=== PATIENT | female | born 1950 | race African-American/Black ===

== ENCOUNTER → 2016-06-06 | Outpatient (CLI) | payer MEDICARE, MEDICAID | LOC: OD 08:34 | PROVIDERS: ATTEND Physician Assistant | DX: R05 Cough (principal) | CPT/HCPCS: 71020 ==

== ENCOUNTER → 2016-09-12 | Outpatient (CLI) | payer MEDICARE, MEDICAID ==
[2016-09-12 13:27] LABS: ALANINE AMINOTRANSFERASE 24 U/L (9-52); ALBUMIN 3.8 g/dL (3.5-5.0); ALKALINE PHOSPHATASE 110 U/L (38-126); ASPARTATE AMINO TRANSFERASE 18 U/L (14-36); BILIRUBIN,DIRECT 0.3 mg/dL (0.0-0.4); BILIRUBIN,TOTAL 0.5 mg/dL (0.2-1.3); CHOLESTEROL 191.92 mg/dL (0-200); Direct HDL 65 mg/dL (>40); TOTAL PROTEIN 6.9 g/dL (6.3-8.2); TRIGLYCERIDES 97 mg/dL (<150)
[2016-09-12 13:38] LABS: DIRECT LDL 95 mg/dL (<100)
== END ==
LOC: OD 07:39
PROVIDERS: ATTEND Specialist
DX: I42.8 Other cardiomyopathies (principal); I50.1 Left ventricular failure, unspecified; I10 Essential (primary) hypertension; E78.5 Hyperlipidemia, unspecified; E11.9 Type 2 diabetes mellitus without complications; R06.02 Shortness of breath; E66.9 Obesity, unspecified; Z79.899 Other long term (current) drug therapy; F17.210 Nicotine dependence, cigarettes, uncomplicated; Z95.810 Presence of automatic (implantable) cardiac defibrillator
CPT/HCPCS: 36415; 80061; 80076; 83036

== ENCOUNTER → 2017-01-08 | Outpatient (CLI) | payer MEDICARE, MEDICAID ==
--- NOTE | 2017-01-08 13:02 | WOMENS IMAGING REPORT ---
EXAM DESCRIPTION: 3D SCREENING MAMMO BILAT COMPLETED DATE/TIME: 01/08/2017 11:38 am REASON FOR STUDY: ENCOUNTER FOR SCREENING MAMMO FOR MALIGNANT NEOPLASM Z12.31 COMPARISON: 12/20/2015 and 12/27/2012. TECHNIQUE: Standard craniocaudal and mediolateral oblique views of each breast recorded using digita l acquisition and breast tomosynthesis. LIMITATIONS: None. FINDINGS: Findings present which are benign by mammographic criteria. No suspicious masses, calcifi cations or architectural distortion. Pertinent benign findings: Stable calcifications. Read with the assistance of CAD. .[facility] - R2 Cenova Version 1.3 .[facility] Imaging - R2 Cenova Version 1.3 .[facility] - R2 Cenova Version 2.4 .[facility] [place] R2 Cenova Version 2.4 .[facility] - R2 Hide And Skin Classer Version 9.2 Benign mammographic findings may include one or more of the following: Smooth masses, popcorn/rim/co arse calcifications, asymmetries, post-procedure changes, and lesions with long-standing stability. IMPRESSION: BENIGN MAMMOGRAPHIC FINDINGS. BIRADS 2 BREAST DENSITY: b. There are scattered areas of fibroglandular density. BIRAD: 2 BENIGN FINDING(S) RECOMMENDATION: RECOMMENDATION: ROUTINE SCREENING COMMENT: The patient has been notified of the results by letter per SA requirements. Additional no tification policies are in place for contacting patient with suspicious or incomplete findings. Quality ID #[id number]: The [employer] recommends an annual screening mammogram for women aged 40 years or over. This facility utilizes a reminder system to ensure that all patients receive reminder letters, and/or direct phone calls for appointments. This includes reminders for routine scr eening mammograms, diagnostic mammograms, or other Breast Imaging Interventions when appropriate. Th is patient will be placed in the appropriate reminder system. The [employer] (ACR) has developed recommendations for screening MRI of the breast s in certain patient populations, to be used in conjunction with mammography. Breast MRI surveillanc e may be appropriate for women with more than 20% lifetime risk of developing breast cancer as deter mined by genetic testing, significant family history of the disease, or history of mantle radiation f or Hodgkins Disease. ACR Practice Guidelines 2008. DBT Technology DBT is a type of tomographic mammography. With conventional mammography, overlapping breast tissue ma y make lesions difficult to detect, even with good compression. DBT uses an x-ray tube that rotates a round the breast, taking images at different angles. These images are then combined to create thin sl ices of the breast that the radiologist can view as a 3D reconstruction. The Hologic unit can perform full-field digital mammograms (2D imaging); or DBT (3D imaging); or both, in a combination mode that quickly performs both the mammogram and the tomosynthesis scan while the breast is still compressed. PQRS 6045F: Fluoroscopic imaging is not utilized for breast tomosynthesis. TECHNICAL DOCUMENTATION: FINDING NUMBER: (1) ASSESSMENT: (1) JOB ID: [id number] [employer]- All Rights Reserved
== END ==
LOC: WI 11:11
PROVIDERS: ATTEND Family Medicine
DX: Z12.31 Encounter for screening mammogram for malignant neoplasm of breast (principal)
CPT/HCPCS: 77063; G0202; 77067

== ENCOUNTER 2017-03-26 10:47 | Inpatient (IN) | payer MEDICARE, MEDICAID ==
[2017-03-26] MEDS ORDERED: NORMAL SALINE 1000 ML 1,000 ML IV ONE (10:59)
[2017-03-26] MEDS ORDERED: ACETAMINOPHEN 325 MG TABLET PO ONE (10:59)
[2017-03-26] MEDS ORDERED: PIPERACILLIN/TAZOBACTAM 4.5 GM VIAL IV ONE (10:59)
--- NOTE | 2017-03-26 11:05 | ER Document Report ---
ED Medical Screen (RME) - General Chief Complaint: Cough Stated Complaint: COUGH Time Seen by Provider: 03/26/17 10:59 Notes: Patient presents with weakness and productive cough of yellow-green sputum. States she has a history of COPD. Saturations at triage - approximately 82% on room air. TRAVEL OUTSIDE OF THE [place] IN LAST 30 DAYS: No - Related Data Allergies/Adverse Reactions: atorvastatin calcium [From Lipitor] Allergy (Severe, Verified 02/02/15 15:10) paralysis Past Medical History - Past Medical History Cardiac Medical History: Reports: Hx Hypertension Denies: Hx Coronary Artery Disease, Hx Heart Attack Pulmonary Medical History: Reports: Hx Bronchitis, Hx COPD Denies: Hx Asthma, Hx Pneumonia Neurological Medical History: Denies: Hx Cerebrovascular Accident, Hx Seizures Renal/ Medical History: Denies: Hx Peritoneal Dialysis Musculoskeltal Medical History: Reports Hx Arthritis Past Surgical History: Denies: Hx Hysterectomy - Immunizations Hx Diphtheria, Pertussis, Tetanus Vaccination: No Physical Exam - Vital signs Vitals: Temp Pulse Resp BP Pulse Ox 100.6 F H 83 23 H 107/66 82 L 03/26/17 10:48 03/26/17 10:48 03/26/17 10:48 03/26/17 10:48 03/26/17 10:48 Course - Vital Signs Vital signs: Temp Pulse Resp BP Pulse Ox 100.6 F H 83 23 H 107/66 82 L 03/26/17 10:48 03/26/17 10:48 03/26/17 10:48 03/26/17 10:48 03/26/17 10:48
[2017-03-26] MEDS ORDERED: NORMAL SALINE 500 ML IV ONE (11:30)
[2017-03-26] MEDS ORDERED: ALBUTEROL SULFATE 0.083% NEB 2.5 MG/3 ML AMPUL NEB ONE (11:34)
[2017-03-26] MEDS ORDERED: IPRATROPIUM/ALBUTEROL 0.5-2.5 MG/3 ML AMPUL NEB ONE (11:34)
[2017-03-26 11:49] LABS: VENOUS BLOOD BASE EXCESS 3.1 mmol/L; VENOUS BLOOD HCO3 29.4 mmol/L (20-32); VENOUS BLOOD PCO2 52.2 mmHg (35-63); VENOUS BLOOD PH 7.37 (7.30-7.42)
[2017-03-26 11:53] LABS: ABSOLUTE BASOPHILS # (AUTO) 0.1 10^3/uL (0.0-0.2); ABSOLUTE MONOCYTES (AUTO) 1.4 10^3/uL (0.1-1.4); ABSOLUTE NEUT (AUTO) 8.7 10^3/uL (1.7-8.2); BASOPHILS % (AUTO) 0.5 % (0-2); EOSINOPHILS % (AUTO) 0.4 % (0-6); HEMATOCRIT 36.1 % (36.0-47.0); HGB HCT DIFFERENCE -0.1; LYMPHOCYTES % (AUTO) 16.5 % (13-45); MEAN CORPUSCULAR HEMOGLOBIN 31.4 pg (27.0-33.4); MEAN CORPUSCULAR HGB CONC 33.2 g/dL (32.0-36.0); MEAN CORPUSCULAR VOLUME 94 fl (80-97); MONOCYTES % (AUTO) 11.4 % (3-13); RED BLOOD COUNT 3.83 10^6/uL (3.72-5.28); SEGMENTED NEUTROPHILS % (AUTO) 71.2 % (42-78); WHITE BLOOD COUNT 12.2 10^3/uL (4.0-10.5)
[2017-03-26 12:10] LABS: ALANINE AMINOTRANSFERASE 31 U/L (9-52); ALBUMIN 3.6 g/dL (3.5-5.0); ALKALINE PHOSPHATASE 97 U/L (38-126); ANION GAP 8 (5-19); ASPARTATE AMINO TRANSFERASE 31 U/L (14-36); BILIRUBIN,DIRECT 0.3 mg/dL (0.0-0.4); BILIRUBIN,TOTAL 0.6 mg/dL (0.2-1.3); BLOOD UREA NITROGEN 13 mg/dL (7-20); CARBON DIOXIDE 34 mmol/L (22-30); CHLORIDE 102 mmol/L (98-107); CREATININE RESULT 1.11 mg/dL (0.52-1.25); GLUCOSE 129 mg/dL (75-110); MAGNESIUM 2.1 mg/dL (1.6-2.3); POTASSIUM 4.2 mmol/L (3.6-5.0); SODIUM 144.4 mmol/L (137-145); TOTAL PROTEIN 6.6 g/dL (6.3-8.2)
--- NOTE | 2017-03-26 12:35 | RADIOLOGY REPORT (SQ) ---
EXAM DESCRIPTION: CHEST SINGLE VIEW COMPLETED DATE/TIME: 03/26/2017 12:26 pm REASON FOR STUDY: sob hypoxia COMPARISON: 06/06/2016 EXAM PARAMETERS: NUMBER OF VIEWS: One view. TECHNIQUE: Single frontal radiographic view of the chest acquired. RADIATION DOSE: NA LIMITATIONS: None. FINDINGS: LUNGS AND PLEURA: Mild chronic interstitial changes are present. There is no infiltrate o r effusion. No mass is present. MEDIASTINUM AND HILAR STRUCTURES: No masses. Contour normal. HEART AND VASCULAR STRUCTURES: Heart size is borderline. There is no evidence of failure. BONES: No acute findings. HARDWARE: Pacemaker/defibrillator. OTHER: No other significant finding. IMPRESSION: Borderline cardiomegaly with chronic lung changes. There is no fred CHF. TECHNICAL DOCUMENTATION: JOB ID: [id number]
[2017-03-26] MEDS ORDERED: LEVOFLOXACIN 500 MG/D5W RTU 500 MG/100 ML RTUPB IV ONE ×2 (12:47→17:12)
--- NOTE | 2017-03-26 13:21 | ER Document Report ---
ED General - General Chief Complaint: Cough Stated Complaint: COUGH Time Seen by Provider: 03/26/17 10:59 TRAVEL OUTSIDE OF THE [place] IN LAST 30 DAYS: No - HPI Patient complains to provider of: Fever shortness of breath Notes: Patient coming in for shortness of breath. Upon evaluating patient patient was found to be significantly hypoxic patient does not require oxygen at home but was placed on oxygen here in the ER. Patient states she has been short of breath for years however acutely worse the last few days. Patient states PCP is Dr. Dai the [facility]. Patient denies any recent travel denies any trauma. Denies any chest pain abdominal pain fevers chills nausea vomiting diarrhea. Patient is talking in complete sentences upon my evaluation. Patient is asking to be discharged home. States history of COPD states significant smoking history to as well. Denies any significant productive cough. States clear sputum. - Related Data Allergies/Adverse Reactions: atorvastatin calcium [From Lipitor] Allergy (Severe, Verified 02/02/15 15:10) paralysis Home Medications: Current Home Medications Adalimumab [Humira] 40 mg SQ [id number] 03/26/17 [History] Albuterol Sulfate [Ventolin Hfa] 2 puff IH Q4 PRN 03/26/17 [History] Amlodipine Besylate/Benazepril [Amlodipine-Benazepril 5-10 mg] 1 cap PO Q12 [History] Atenolol [Tenormin 50 mg Tablet] 50 mg PO DAILY 03/26/17 [History] Calcium Carbonate [Calcium] 600 mg PO DAILY 03/26/17 [History] Cholecalciferol (Vitamin D3) [Vitamin D] 2,000 unit PO DAILY 03/26/17 [History] Folic Acid [Folvite 1 mg Tablet] 1 mg PO DAILY 03/26/17 [History] Methotrexate Sodium [Methotrexate] 10 mg PO SA@1000 03/26/17 [History] Past Medical History - Social History Smoking Status: Current Every Day Smoker Chew tobacco use (# tins/day): No Frequency of alcohol use: None Drug Abuse: None Family History: Reviewed & Not Pertinent Patient has suicidal ideation: No Patient has homicidal ideation: No - Past Medical History Cardiac Medical History: Reports: Hx Hypertension Denies: Hx Coronary Artery Disease, Hx Heart Attack Pulmonary Medical History: Reports: Hx Bronchitis, Hx COPD Denies: Hx Asthma, Hx Pneumonia Neurological Medical History: Denies: Hx Cerebrovascular Accident, Hx Seizures Renal/ Medical History: Denies: Hx Peritoneal Dialysis Musculoskeltal Medical History: Reports Hx Arthritis Past Surgical History: Denies: Hx Hysterectomy - Immunizations Hx Diphtheria, Pertussis, Tetanus Vaccination: No Review of Systems - Review of Systems Constitutional: No symptoms reported EENT: No symptoms reported Cardiovascular: No symptoms reported Respiratory: Cough, Short of breath, Wheezing Gastrointestinal: No symptoms reported Genitourinary: No symptoms reported Female Genitourinary: No symptoms reported Musculoskeletal: No symptoms reported Skin: No symptoms reported Hematologic/Lymphatic: No symptoms reported Neurological/Psychological: No symptoms reported -: Yes All other systems reviewed and negative Physical Exam - Vital signs Vitals: Temp Pulse Resp BP Pulse Ox 100.6 F H 83 23 H 107/66 82 L 03/26/17 10:48 03/26/17 10:48 03/26/17 10:48 03/26/17 10:48 03/26/17 10:48 Interpretation: Tachypneic, Febrile - General General appearance: Appears well, Alert - HEENT Head: Normocephalic, Atraumatic Eyes: Normal Pupils: PERRL - Respiratory Respiratory status: Respiratory distress Chest status: Nontender Breath sounds: Rhonchi, Wheezing Chest palpation: Normal - Cardiovascular Rhythm: Regular Heart sounds: Normal auscultation Murmur: No - Abdominal Inspection: Normal Distension: No distension Bowel sounds: Normal Tenderness: Nontender Organomegaly: No organomegaly - Back Back: Normal, Nontender - Extremities General upper extremity: Normal inspection, Nontender, Normal color, Normal ROM , Normal temperature General lower extremity: Normal inspection, Nontender, Normal color, Normal ROM , Normal temperature, Normal weight bearing. No: Christopher's sign - Neurological Neuro grossly intact: Yes Cognition: Normal Orientation: AAOx4 Gaines Coma Scale Eye Opening: Spontaneous Gaines Coma Scale Verbal: Oriented Alex Coma Scale Motor: Obeys Commands Alex Coma Scale Total: 15 Speech: Normal Motor strength normal: LUE, RUE, LLE, RLE Sensory: Normal - Psychological Associated symptoms: Normal affect, Normal mood - Skin Skin Temperature: Warm Skin Moisture: Dry Skin Color: Normal Course - Re-evaluation Re-evalutation: 03/26/17 15:31 Breathing treatments were initially ordered for the patient with no improvement of the patient's oxygenation status was off the breathing treatments therefore decision was made to place patient on BiPAP. Laboratory studies not show any significant signs of infection hypercarbia. ABG was performed however cancel again flu test was also performed however canceled. These were reordered. Discussed with PCP request a CTA which showed no signs of pulmonary emboli but did show signs of atelectasis versus pneumonia. Patient was given antibiotics. Will admit the patient to [facility]. - Vital Signs Vital signs: Temp Pulse Resp BP Pulse Ox 99.2 F 83 17 114/85 100 03/26/17 15:05 03/26/17 10:48 03/26/17 15:16 03/26/17 15:16 03/26/17 15:16 - Laboratory Result Diagrams: 03/26/17 11:23 03/26/17 11:23 Laboratory results interpreted by me: 03/26/17 03/26/17 03/26/17 11:23 11:23 11:23 WBC 12.2 H RDW 16.0 H Absolute Neutrophils 8.7 H Carbon Dioxide 34 H Est GFR (Non-Af Amer) 49 L Glucose 129 H NT-Pro-B Natriuret Pep 969 H Critical Care Note - Critical Care Note Total time excluding time spent on procedures (mins): 35 Comments: Respiratory distress requiring BiPAP. Discharge - Discharge Clinical Impression: COPD exacerbation, Hypoxia Condition: Good Disposition: ADMITTED INPATIENT Admitting Provider: Noel Unit Admitted: [facility]
[2017-03-26] MEDS ORDERED: ACETAMINOPHEN 325 MG TABLET PO PRN (14:26)
--- NOTE | 2017-03-26 14:40 | RADIOLOGY REPORT (SQ) ---
EXAM DESCRIPTION: CTA CHEST COMPLETED DATE/TIME: 03/26/2017 2:13 pm REASON FOR STUDY: sob shortness of breath COMPARISON: CT chest 06/11/2015 Chest films 03/26/2017, 06/06/2016 TECHNIQUE: CT scan of the chest performed using helical scanning technique with dynamic intravenous contrast injection. Images reviewed with lung, soft tissue and bone windows. Reconstructed coronal and sagittal MPR images reviewed. Additional 3 dimensional post-processing performed to develop Maximal Intensity Projection images (AK P). All images stored on PACS. All CT scanners at this facility use dose modulation, iterative reconstruction, and/or weight based d osing when appropriate to reduce radiation dose to as low as reasonably achievable (ALARA). [facility]: Dose Right [facility]: CareDose [facility]: Dose Right [facility]: Teradose 4D [facility]: Wanderio CONTRAST TYPE AND DOSE: contrast/concentration: Isovue 370.00 mg/ml; Total Contrast Delivered: 76.0 ml; Total Saline Delivered: 100.0 ml Contrast bolus optimized for the pulmonary arteries. Not diagnostic for the aorta. RENAL FUNCTION: Creatinine 1.1 RADIATION DOSE: Up-to-date CT equipment and radiation dose reduction techniques were employed. CTDIv ol: 16.5 - 17.1 mGy. DLP: 599 mGy-cm. . LIMITATIONS: None. FINDINGS: LUNGS AND PLEURA: Patchy bibasilar airspace disease is present atelectasis versus pneumoni a. No pleural effusions. No pneumothorax. No worrisome pulmonary nodules. AORTA AND GREAT VESSELS: No aneurysm. Contrast bolus not optimized for the aorta. HEART: No pericardial effusion. No significant coronary artery calcifications. Mild cardiomegaly PULMONARY ARTERIES: No emboli visualized in the main pulmonary arteries or the segmental branches. HILAR AND MEDIASTINAL STRUCTURES: There are multiple enlarged lymph nodes as follows: Right paratrac heal 10 mm node Aortopulmonary window 2 x 2 cm lymph node conglomerate Precarinal 1.3 x 1 cm lymph node HARDWARE: Streak artifact from a left-sided pacemaker. . UPPER ABDOMEN: No significant findings. Limited exam. THYROID AND OTHER SOFT TISSUES: There is thyromegaly, similar compared to when 816 BONES: No acute or significant finding. 3D MIPS: Confirm above findings. OTHER: No other significant finding. IMPRESSION: No CT angio evidence of acute pulmonary emboli. Bilateral lower lobe airspace disease atelectasis versus pneumonia No pleural effusions or pneumothorax Nonspecific mild mediastinal adenopathy COMMENT: Quality ID # [id number]: Final reports with documentation of one or more dose reduction techniques (e.g., Automated exposure control, adjustment of the mA and/or kV according to patient size, use of iterative reconstruction technique) TECHNICAL DOCUMENTATION: JOB ID: [id number] [employer]- All Rights Reserved
[2017-03-26] MEDS ORDERED: ENOXAPARIN SODIUM INJ 40 MG/0.4 ML DISP.SYRIN SUBCUT ONE (15:00)
[2017-03-26 15:31] LABS: CREATINE KINASE MB 1.74 ng/mL (<4.55)
[2017-03-26 15:33] LABS: TROPONIN I < 0.012 ng/mL
[2017-03-26 15:54] LABS: APPEARANCE,URINE CLOUDY; BILIRUBIN,URINE NEGATIVE (NEGATIVE); GLUCOSE, URINE NEGATIVE (NEGATIVE); KETONES,URINE NEGATIVE (NEGATIVE); LEUKOCYTE ESTERASE,URINE TRACE (NEGATIVE); NITRITE,URINE NEGATIVE (NEGATIVE); PROTEIN,URINE 100 mg/dL (NEGATIVE)
--- NOTE | 2017-03-26 15:54 | Progress Note ---
Provider Note Provider Note: Patient already accepted by Dr. Noel for admission however I am and made aware of her as she still in the department, patient on BiPAP for respiratory distress likely from COPD with possible pneumonia. Intermitently noncompliant with BiPAP.
[2017-03-26 15:57] LABS: URINE SPECIFIC GRAVITY > 1.060
[2017-03-26] MEDS: IPRATROPIUM/ALBUTEROL 0.5-2.5 MG/3 ML AMPUL NEB SCH ×2 (16:16→20:38)
--- NOTE | 2017-03-26 16:42 | PDOC H&P ---
History of Present Illness Admission Date/PCP: 03/26/17 14:26 LESLY HEDRICK MD Patient complains of: Shortness of the breath and fever History of Present Illness: INA ELMORE is a 66 year old female Is a 66-year-old female with a history of the COPD and a history of the congestive heart failure and a history of the rheumatoid arthritis and a chronic back problemsCurrently taking the Humira and methotrexate per mill oiler was complaining some cough cold and congestion since last couple of weeks and feeling short of breath. According to the family and the patient she also noticed some greenish yellowish sputum discharge since last 1 week and started running a feverIn the emergency department patient oxygen saturation is only 82% and patient immediately put on oxygen and the put on the BiPAP and when I saw the patient in the ER patient is currently comfortably lying in the bed with the BiPAP and denied any chest pain denied any shortness of the breathPatient was also given the steroid and the nebulizer treatment. Physicians Patient have a CT angiogram was done for negative for PE Patient also see a Dr. shi as outpatient and recent heart work is all stable Patient CT chest so some possible pneumonia versus atelectasis patient given the broad-spectrum IV antibiotic for the IMCU and discussed with the and the bedside regarding the patient's current conditions Past Medical History Cardiac Medical History: Reports: Hypertension Denies: Coronary Artery Disease, Myocardial Infarction Pulmonary Medical History: Reports: Bronchitis, Chronic Obstructive Pulmonary Disease (COPD) Denies: Asthma, Pneumonia Neurological Medical History: Denies: Seizures GI Medical History: Reports: Gastroesophageal Reflux Disease Musculoskeltal Medical History: Reports: Arthritis Musculoskeletal History Note: Rheumatoid arthritis Hematology: Denies: Anemia Past Surgical History Past Surgical History: Denies: Hysterectomy Social History Smoking Status: Current Every Day Smoker - Advance Directive Resuscitation Status: Full Code Family History Family History: Reviewed & Not Pertinent Parental Family History Reviewed: Yes Children Family History Reviewed: Yes Sibling(s) Family History Reviewed.: Yes Medication/Allergy Home Medications: Adalimumab [Humira] 40 mg SQ [id number] 03/26/17 Albuterol Sulfate [Ventolin Hfa] 2 puff IH Q4 PRN 03/26/17 Amlodipine Besylate/Benazepril [Amlodipine-Benazepril 5-10 mg] 1 cap PO Q12 Atenolol [Tenormin 50 mg Tablet] 50 mg PO DAILY 03/26/17 Calcium Carbonate [Calcium] 600 mg PO DAILY 03/26/17 Cholecalciferol (Vitamin D3) [Vitamin D] 2,000 unit PO DAILY 03/26/17 Folic Acid [Folvite 1 mg Tablet] 1 mg PO DAILY 03/26/17 Methotrexate Sodium [Methotrexate] 10 mg PO SA@1000 03/26/17 Allergies/Adverse Reactions: atorvastatin calcium [From Lipitor] Allergy (Severe, Verified 02/02/15 15:10) paralysis Review of Systems Constitutional: PRESENT: fatigue, fever(s). ABSENT: chills, headache(s), weight gain, weight loss Eyes: ABSENT: visual disturbances Ears: ABSENT: hearing changes Cardiovascular: PRESENT: dyspnea on exertion. ABSENT: chest pain, edema, orthropnea, palpitations Respiratory: PRESENT: cough, dyspnea. ABSENT: hemoptysis Gastrointestinal: ABSENT: abdominal pain, constipation, diarrhea, hematemesis, hematochezia, nausea, vomiting Genitourinary: ABSENT: dysuria, hematuria Musculoskeletal: ABSENT: joint swelling Integumentary: ABSENT: rash, wounds Neurological: ABSENT: abnormal gait, abnormal speech, confusion, dizziness, focal weakness, syncope Psychiatric: ABSENT: anxiety, depression, homidical ideation, suicidal ideation Endocrine: ABSENT: cold intolerance, heat intolerance, menstrual abnormalities, polydipsia, polyuria Hematologic/Lymphatic: ABSENT: easy bleeding, easy bruising, lymphadenopathy Physical Exam Vital Signs: Temp Pulse Resp BP Pulse Ox 99.2 F 83 17 114/85 100 03/26/17 15:05 03/26/17 10:48 03/26/17 15:16 03/26/17 15:16 03/26/17 15:16 General appearance: PRESENT: mild distress Head exam: PRESENT: normocephalic Eye exam: PRESENT: conjunctiva pink, EOMI, PERRLA. ABSENT: scleral icterus Ear exam: PRESENT: normal external ear exam Mouth exam: PRESENT: moist, tongue midline Neck exam: PRESENT: full ROM. ABSENT: carotid bruit, JVD, lymphadenopathy, thyromegaly Respiratory exam: PRESENT: decreased breath sounds, tachypnea, wheezes Cardiovascular exam: PRESENT: RRR, +S1, +S2. ABSENT: diastolic murmur, rubs, systolic murmur Pulses: PRESENT: normal dorsalis pedis pul, +2 pedal pulses bilateral Vascular exam: PRESENT: normal capillary refill GI/Abdominal exam: PRESENT: normal bowel sounds, soft. ABSENT: distended, guarding, mass, organolmegaly, rebound, tenderness Rectal exam: PRESENT: deferred Extremities exam: ABSENT: pedal edema Neurological exam: PRESENT: alert, awake, oriented to person, oriented to place , oriented to time, oriented to situation, CN II-XII grossly intact. ABSENT: motor sensory deficit Psychiatric exam: PRESENT: appropriate affect, normal mood. ABSENT: homicidal ideation, suicidal ideation Skin exam: PRESENT: dry, intact, warm. ABSENT: cyanosis, rash Results Laboratory Results: 03/26/17 15:30 Urine Color DARK YELLOW Urine Appearance CLOUDY Urine pH 5.0 Ur Specific [place] > 1.060 Urine Protein 100 H Urine Glucose (UA) NEGATIVE Urine Ketones NEGATIVE Urine Blood NEGATIVE Urine Nitrite NEGATIVE Ur Leukocyte Esterase TRACE H Urine WBC (Auto) 1 Urine RBC (Auto) 1 03/26/17 03/26/17 14:44 14:44 Creatine Kinase 121 CK-MB (CK-2) 1.74 Troponin I < 0.012 Impressions: Chest X-Ray 03/26/17 11:32 IMPRESSION: Borderline cardiomegaly with chronic lung changes. There is no fred CHF. Chest/Abdomen CTA 03/26/17 12:47 IMPRESSION: No CT angio evidence of acute pulmonary emboli. Bilateral lower lobe airspace disease atelectasis versus pneumonia No pleural effusions or pneumothorax Nonspecific mild mediastinal adenopathy Assessment & Plan - Diagnosis (1) Acute respiratory distress Is this a current diagnosis for this admission?: Yes Plan: Most likely a possible underlying pneumonia when the patient's taking the Humira and methotrexate's may be a low immune response will start the patient on the BiPAP and consult the pulmonary for further evaluations (2) Pneumonia Qualifiers: Pneumonia type: due to unspecified organism Lung location: unspecified part of lung Is this a current diagnosis for this admission?: Yes Plan: With the patient's immunocompromised due to the medications we start the patient on a broad-spectrum antibiotic nebulizer treatments (3) COPD exacerbation Is this a current diagnosis for this admission?: Yes Plan: Start the nebulizer treatment and IV steroid (4) Congestive heart failure Qualifiers: Congestive heart failure type: diastolic Is this a current diagnosis for this admission?: Yes Plan: Currently stable continues to current medication (5) Hypertension Qualifiers: Hypertension type: essential hypertension Qualified Code(s): I10 - Essential (primary) hypertension Is this a current diagnosis for this admission?: Yes Plan: Stable (6) Hypoxia Is this a current diagnosis for this admission?: Yes Plan: With a combination of the COPD and pneumonia (7) Rheumatoid arthritis Qualifiers: Rheumatoid arthritis location: unspecified site Is this a current diagnosis for this admission?: Yes Plan: Currently hold the methotrexate - Time Time Spent: 30 to 50 Minutes Medications reviewed and adjusted accordingly: Yes Anticipated discharge: Home Within: Other - Inpatient Certification Medical Necessity: Need Close Monitoring Due to Risk of Patient Decompensation, Need For IV Fluids, Need for IV Antibiotics Post Hospital Care: D/C Probation And Parole Officer Documentation - Plan Summary Plan Summary: Admitting the patient in IMCU see other MD orders discussed with the patient in the hospital and the bedside we consult the pulmonary for further evaluations get the repeat ABG
[2017-03-26 19:16] LABS: ARTERIAL BLOOD BASE EXCESS 5.7 mmol/L; ARTERIAL BLOOD O2 SATURATION 67.4 % (94-98)
--- NOTE | 2017-03-26 21:37 | EKG REPORT ---
SEVERITY:- NORMAL ECG - SINUS RHYTHM : Confirmed by: Bhavana Nelson 26-Mar-2017 21:36:50
[2017-03-26] MEDS ORDERED: GUAIFENESIN 600 MG TABLET.SA PO ONE (22:00)
[2017-03-26] MEDS ORDERED: BENAZEPRIL PO SCH (22:00)
[2017-03-26] MEDS ORDERED: [UNRECOGNIZED DRUG - OTHER] PO SCH (22:00)
[2017-03-26] MEDS ORDERED: AMLODIPINE BESYLATE PO SCH (22:00)
[2017-03-26] MEDS: GUAIFENESIN SYRP 200 MG/10 ML UDC PO PRN (22:08)
[2017-03-26 22:12] LABS: TROPONIN I < 0.012 ng/mL
[2017-03-26] MEDS: CEFEPIME 1 GM/D5W RTU 1 GM/50 ML RTUPB IV SCH (22:13)
[2017-03-26] MEDS: GUAIFENESIN 600 MG TABLET.SA PO SCH (22:13)
[2017-03-26] MEDS: METHYLPREDNISOLONE INJ 125 MG/2 ML SDV IV SCH (22:14)
[2017-03-26] MEDS: BENAZEPRIL HCL 10 MG TABLET PO SCH (22:28)
[2017-03-26] MEDS: AMLODIPINE BESYLATE 5 MG TABLET PO SCH (22:28)
[2017-03-27] MEDS: METHYLPREDNISOLONE INJ 125 MG/2 ML SDV IV SCH ×3 (05:23→21:04)
[2017-03-27 06:05] LABS: ANION GAP 10 (5-19); BLOOD UREA NITROGEN 18 mg/dL (7-20); CALCIUM 10.1 mg/dL (8.4-10.2); CARBON DIOXIDE 29 mmol/L (22-30); CHLORIDE 104 mmol/L (98-107); CREATININE RESULT 1.19 mg/dL (0.52-1.25); GLUCOSE 144 mg/dL (75-110); POTASSIUM 4.5 mmol/L (3.6-5.0); SODIUM 143.4 mmol/L (137-145)
[2017-03-27 06:10] LABS: ABSOLUTE LYMPHOCYTES (AUTO) 0.8 10^3/uL (0.5-4.7); ABSOLUTE MONOCYTES (AUTO) 0.2 10^3/uL (0.1-1.4); ABSOLUTE NEUT (AUTO) 8.9 10^3/uL (1.7-8.2); BASOPHILS % (AUTO) 0.2 % (0-2); EOSINOPHILS % (AUTO) 0.1 % (0-6); HEMATOCRIT 34.1 % (36.0-47.0); HEMOGLOBIN 11.8 g/dL (12.0-15.5); HGB HCT DIFFERENCE 1.3; LYMPHOCYTES % (AUTO) 7.7 % (13-45); MEAN CORPUSCULAR HEMOGLOBIN 34.4 pg (27.0-33.4); MEAN CORPUSCULAR HGB CONC 34.6 g/dL (32.0-36.0); MONOCYTES % (AUTO) 1.9 % (3-13); RED BLOOD COUNT 3.43 10^6/uL (3.72-5.28); RED CELL DISTRIBUTION WIDTH 15.8 % (11.5-14.0); SEGMENTED NEUTROPHILS % (AUTO) 90.1 % (42-78); WHITE BLOOD COUNT 9.8 10^3/uL (4.0-10.5)
[2017-03-27 06:23] LABS: ARTERIAL BLOOD BASE EXCESS 2.5 mmol/L; ARTERIAL BLOOD O2 SATURATION 90.5 % (94-98)
[2017-03-27 06:27] LABS: CREATINE KINASE MB 1.84 ng/mL (<4.55)
[2017-03-27 06:39] LABS: TROPONIN I < 0.012 ng/mL
[2017-03-27 07:09] LABS: MEAN CORPUSCULAR VOLUME 99 fl (80-97)
[2017-03-27] MEDS: IPRATROPIUM/ALBUTEROL 0.5-2.5 MG/3 ML AMPUL NEB SCH ×4 (07:54→20:03)
--- NOTE | 2017-03-27 08:38 | RADIOLOGY REPORT (SQ) ---
EXAM DESCRIPTION: CHEST SINGLE VIEW COMPLETED DATE/TIME: 03/27/2017 6:31 am REASON FOR STUDY: PNA COMPARISON: CT chest 06/11/2015, 03/26/2017 Chest films 03/26/2017, 06/06/2016 EXAM PARAMETERS: NUMBER OF VIEWS: One view. TECHNIQUE: Single frontal radiographic view of the chest acquired. RADIATION DOSE: NA LIMITATIONS: None. FINDINGS: LUNGS AND PLEURA: Minimal bandlike atelectasis in the right middle lobe near the minor fis sure. Lungs are otherwise well inflated and clear. No pleural effusion. No pneumothorax. MEDIASTINUM AND HILAR STRUCTURES: No masses. Contour normal. HEART AND VASCULAR STRUCTURES: Mild cardiomegaly. Tortuous uncoiled thoracic aorta BONES: No acute findings. HARDWARE: Left-sided dual lead pacemaker OTHER: No other significant finding. IMPRESSION: Minimal bandlike atelectasis right middle lobe near the minor fissure. TECHNICAL DOCUMENTATION: JOB ID: [id number]
[2017-03-27] MEDS ORDERED: (PENDING PHARMACY ID) (Cholecalciferol (Vitamin D3) [Vitamin D3] 2,000 UNIT) PO SCH (10:00)
[2017-03-27] MEDS ORDERED: GUAIFENESIN 600 MG TABLET.SA PO SCH (10:00)
[2017-03-27] MEDS ORDERED: (PENDING PHARMACY ID) (Calcium Carbonate [Calcium] 600 MG) PO SCH (10:00)
[2017-03-27] MEDS: DOCUSATE SODIUM 100 MG CAPSULE PO SCH (10:45)
[2017-03-27] MEDS: FOLIC ACID 1 MG TABLET PO SCH (10:46)
[2017-03-27] MEDS: GUAIFENESIN 600 MG TABLET.SA PO SCH ×2 (10:46→21:03)
[2017-03-27] MEDS: CHOLECALCIFEROL (D3) 1,000 UNIT TABLET PO SCH (10:46)
[2017-03-27] MEDS: BENAZEPRIL HCL 10 MG TABLET PO SCH ×2 (10:47→21:05)
[2017-03-27] MEDS: AMLODIPINE BESYLATE 5 MG TABLET PO SCH (10:51)
[2017-03-27] MEDS: CEFEPIME 1 GM/D5W RTU 1 GM/50 ML RTUPB IV SCH ×2 (10:52→21:03)
[2017-03-27] MEDS: LEVOFLOXACIN 500 MG/D5W RTU 500 MG/100 ML RTUPB IV SCH (10:52)
[2017-03-27] MEDS: ENOXAPARIN SODIUM INJ 40 MG/0.4 ML DISP.SYRIN SUBCUT SCH (10:53)
[2017-03-27] MEDS: ATENOLOL 50 MG TABLET PO SCH (10:56)
[2017-03-27] MEDS: CALCIUM CARBONATE 500 MG TABLET PO SCH (11:10)
--- NOTE | 2017-03-27 12:49 | PDOC PROGRESS REPORT ---
Subjective Progress Note for:: 03/27/17 Subjective:: Patient is currently doing fair. Patient was put on the BiPAP last night. Patient's denied any chest pain denied any shortness of the breath.Patient seen by the pulmonary and adjust the BiPAP Physical Exam Vital Signs: Temp Pulse Resp BP Pulse Ox 98.6 F 78 20 94/65 L 93 03/27/17 12:00 03/27/17 12:23 03/27/17 12:23 03/27/17 12:00 03/27/17 12:23 Intake & Output 03/26/17 03/27/17 03/28/17 06:59 06:59 06:59 Intake Total 50 Output Total 200 100 Balance -150 -100 Weight 90.9 kg General appearance: PRESENT: no acute distress, well-developed, well-nourished Head exam: PRESENT: atraumatic, normocephalic Eye exam: PRESENT: conjunctiva pink, EOMI, PERRLA. ABSENT: scleral icterus Ear exam: PRESENT: normal external ear exam Mouth exam: PRESENT: moist, tongue midline Neck exam: PRESENT: full ROM. ABSENT: carotid bruit, JVD, lymphadenopathy, thyromegaly Respiratory exam: PRESENT: clear to auscultation jany Cardiovascular exam: PRESENT: RRR. ABSENT: diastolic murmur, rubs, systolic murmur Pulses: PRESENT: normal dorsalis pedis pul, +2 pedal pulses bilateral Vascular exam: PRESENT: normal capillary refill GI/Abdominal exam: PRESENT: normal bowel sounds, soft. ABSENT: distended, guarding, mass, organolmegaly, rebound, tenderness Rectal exam: PRESENT: deferred Neurological exam: PRESENT: alert, awake, oriented to person, oriented to place , oriented to time, oriented to situation, CN II-XII grossly intact. ABSENT: motor sensory deficit Psychiatric exam: PRESENT: appropriate affect, normal mood. ABSENT: homicidal ideation, suicidal ideation Skin exam: PRESENT: dry, intact, warm. ABSENT: cyanosis, rash Results Laboratory Results: 03/27/17 05:28 03/27/17 05:28 03/26/17 03/26/17 03/27/17 15:30 19:00 05:28 WBC 9.8 RBC 3.43 L Hgb 11.8 L Hct 34.1 L MCV 99 H D MCH 34.4 H MCHC 34.6 RDW 15.8 H Plt Count 193 Seg Neutrophils % 90.1 H Lymphocytes % 7.7 L Monocytes % 1.9 L Eosinophils % 0.1 Basophils % 0.2 Absolute Neutrophils 8.9 H Absolute Lymphocytes 0.8 Absolute Monocytes 0.2 Absolute Eosinophils 0.0 Absolute Basophils 0.0 Carbonic Acid 1.66 H HCO3/H2CO3 Ratio 19:1 ABG pH 7.38 ABG pCO2 55.3 H ABG pO2 36.5 L* ABG HCO3 32.1 H ABG O2 Saturation 67.4 L ABG Base Excess 5.7 FiO2 5L Sodium Potassium Chloride Carbon Dioxide Anion Gap BUN Creatinine Est GFR ( Amer) Est GFR (Non-Af Amer) Glucose Calcium Magnesium Urine Color DARK YELLOW Urine Appearance CLOUDY Urine pH 5.0 Ur Specific [place] > 1.060 Urine Protein 100 H Urine Glucose (UA) NEGATIVE Urine Ketones NEGATIVE Urine Blood NEGATIVE Urine Nitrite NEGATIVE Ur Leukocyte Esterase TRACE H Urine WBC (Auto) 1 Urine RBC (Auto) 1 03/27/17 03/27/17 05:28 05:35 WBC RBC Hgb Hct MCV MCH MCHC RDW Plt Count Seg Neutrophils % Lymphocytes % Monocytes % Eosinophils % Basophils % Absolute Neutrophils Absolute Lymphocytes Absolute Monocytes Absolute Eosinophils Absolute Basophils Carbonic Acid 1.51 H HCO3/H2CO3 Ratio 18:1 ABG pH 7.37 ABG pCO2 50.1 H ABG pO2 60.9 L ABG HCO3 28.5 H ABG O2 Saturation 90.5 L ABG Base Excess 2.5 FiO2 40% Sodium 143.4 Potassium 4.5 Chloride 104 Carbon Dioxide 29 Anion Gap 10 BUN 18 Creatinine 1.19 Est GFR ( Amer) 55 L Est GFR (Non-Af Amer) 45 L Glucose 144 H Calcium 10.1 Magnesium 2.0 Urine Color Urine Appearance Urine pH Ur Specific [place] Urine Protein Urine Glucose (UA) Urine Ketones Urine Blood Urine Nitrite Ur Leukocyte Esterase Urine WBC (Auto) Urine RBC (Auto) 03/26/17 03/26/17 03/26/17 14:44 14:44 21:30 Creatine Kinase 121 134 CK-MB (CK-2) 1.74 Troponin I < 0.012 03/26/17 03/27/17 03/27/17 21:30 05:28 05:28 Creatine Kinase 118 CK-MB (CK-2) 2.10 1.84 Troponin I < 0.012 < 0.012 Impressions: Chest/Abdomen CTA 03/26/17 12:47 IMPRESSION: No CT angio evidence of acute pulmonary emboli. Bilateral lower lobe airspace disease atelectasis versus pneumonia No pleural effusions or pneumothorax Nonspecific mild mediastinal adenopathy Chest X-Ray 03/27/17 06:00 IMPRESSION: Minimal bandlike atelectasis right middle lobe near the minor fissure. Assessment & Plan - Diagnosis (1) Acute respiratory distress Is this a current diagnosis for this admission?: Yes Plan: Continues to current medications (2) Pneumonia Qualifiers: Pneumonia type: due to unspecified organism Lung location: unspecified part of lung Is this a current diagnosis for this admission?: Yes Plan: Continues to IV antibiotic (3) COPD exacerbation Is this a current diagnosis for this admission?: Yes Plan: Start the nebulizer treatment and IV steroid (4) Congestive heart failure Qualifiers: Congestive heart failure type: diastolic Is this a current diagnosis for this admission?: Yes Plan: Currently stable continues to current medication (5) Hypertension Qualifiers: Hypertension type: essential hypertension Qualified Code(s): I10 - Essential (primary) hypertension Is this a current diagnosis for this admission?: Yes Plan: Stable (6) Hypoxia Is this a current diagnosis for this admission?: Yes Plan: With a combination of the COPD and pneumonia (7) Rheumatoid arthritis Qualifiers: Rheumatoid arthritis location: unspecified site Is this a current diagnosis for this admission?: Yes - Time Time Spent with patient: 15-24 minutes Medications reviewed and adjusted accordingly: Yes Anticipated discharge: Home Within: Other - Inpatient Certification Medical Necessity: Need Close Monitoring Due to Risk of Patient Decompensation, Need for IV Antibiotics Post Hospital Care: D/C Building Services Technician Documentation - Plan Summary Plan Summary: Discussed with the patient and the family in the room continues current medications
--- NOTE | 2017-03-27 15:03 | PDOC CONSULTATION ---
Consultation Consult Date: 03/27/17 Attending physician:: LESLY HEDRICK Consult reason:: Dyspnea History of Present Illness Admission Date/PCP: 03/26/17 14:26 LESLY HEDRICK MD History of Present Illness: INA ELMORE is a 66 year old female Is a 66-year-old female with a history of 3 days of increasing shortness of breath and a cough productive of yellow-green phlegm no hemoptysis reported no chills questionable fever possibly up to 103 extensive history of smoking in the past carries a diagnosis of COPD PD status is unknown no history of chronic lung disease as a child or as an adolescent admits to exposure to passive smoke as a child as well as an adult she denies pets or recent travel to occasional tightness in her chest sleeps on 3 pillows occasional PND occasional nocturnal cough and occasional edema. She has a history of CHF as well as rheumatoid arthritis is currently somewhat immunologically compromised as she is taking Humira as well as methotrexate. Past Medical History Cardiac Medical History: Reports: Hypertension Denies: Coronary Artery Disease, Myocardial Infarction Pulmonary Medical History: Reports: Bronchitis, Chronic Obstructive Pulmonary Disease (COPD) Denies: Asthma, Pneumonia Neurological Medical History: Denies: Seizures GI Medical History: Reports: Gastroesophageal Reflux Disease Musculoskeltal Medical History: Reports: Arthritis Hematology: Denies: Anemia Past Surgical History Past Surgical History: Denies: Hysterectomy Social History Information Source: Patient, [facility] Records Smoking Status: Current Every Day Smoker Frequency of Alcohol Use: None Hx Recreational Drug Use: No Drugs: None Hx Prescription Drug Abuse: No Do you have pets?: No Have you had any respiratory illnesses as a child?: No Have you been exposed to any sick contacts recently?: No Have you had any recent respiratory illnesses?: No - Advance Directive Resuscitation Status: Full Code Family History Family History: Reviewed & Not Pertinent Parental Family History Reviewed: Yes Children Family History Reviewed: Yes Sibling(s) Family History Reviewed.: Yes Medication/Allergy Home Medications: Adalimumab [Humira] 40 mg SQ [id number] 03/26/17 Albuterol Sulfate [Ventolin Hfa] 2 puff IH Q4 PRN 03/26/17 Amlodipine Besylate/Benazepril [Amlodipine-Benazepril 5-10 mg] 1 cap PO Q12 Atenolol [Tenormin 50 mg Tablet] 50 mg PO DAILY 03/26/17 Calcium Carbonate [Calcium] 600 mg PO DAILY 03/26/17 Cholecalciferol (Vitamin D3) [Vitamin D] 2,000 unit PO DAILY 03/26/17 Folic Acid [Folvite 1 mg Tablet] 1 mg PO DAILY 03/26/17 Methotrexate Sodium [Methotrexate] 10 mg PO SA@1000 03/26/17 Allergies/Adverse Reactions: atorvastatin calcium [From Lipitor] Allergy (Severe, Verified 02/02/15 15:10) paralysis Review of Systems All systems: reviewed and no additional remarkable complaints except as stated Physical Exam Vital Signs: Temp Pulse Resp BP Pulse Ox 98.7 F 80 18 126/78 H 86 L 03/27/17 07:35 03/27/17 07:54 03/27/17 07:54 03/27/17 07:35 03/27/17 07:54 Intake & Output 03/26/17 03/27/17 03/28/17 06:59 06:59 06:59 Intake Total 50 Output Total 200 Balance -150 Weight 90.9 kg General appearance: PRESENT: no acute distress, cooperative, disheveled, obese, well-developed Head exam: PRESENT: atraumatic, normocephalic Eye exam: PRESENT: conjunctiva pale, EOMI Mouth exam: PRESENT: moist, neck supple, tongue midline Neck exam: ABSENT: carotid bruit, JVD, lymphadenopathy, thyromegaly Respiratory exam: PRESENT: decreased breath sounds, prolonged expiratory phas, rales, rhonchi, symmetrical - Greatest at the bases bilaterally, unlabored, wheezes - Scattered. ABSENT: retraction, stridor, tachypnea Cardiovascular exam: PRESENT: RRR, +S1, +S2 Pulses: PRESENT: normal radial pulses GI/Abdominal exam: PRESENT: normal bowel sounds, soft. ABSENT: distended, guarding, mass, organolmegaly, rebound, tenderness Rectal exam: PRESENT: deferred Gentrourinary exam: PRESENT: indwelling catheter Musculoskeletal exam: PRESENT: normal inspection Neurological exam: PRESENT: alert, awake Psychiatric exam: PRESENT: flat affect Skin exam: PRESENT: dry, warm Results Laboratory Results: 03/27/17 05:28 03/27/17 05:28 03/26/17 03/26/17 03/27/17 15:30 19:00 05:28 WBC 9.8 RBC 3.43 L Hgb 11.8 L Hct 34.1 L MCV 99 H D MCH 34.4 H MCHC 34.6 RDW 15.8 H Plt Count 193 Seg Neutrophils % 90.1 H Lymphocytes % 7.7 L Monocytes % 1.9 L Eosinophils % 0.1 Basophils % 0.2 Absolute Neutrophils 8.9 H Absolute Lymphocytes 0.8 Absolute Monocytes 0.2 Absolute Eosinophils 0.0 Absolute Basophils 0.0 Carbonic Acid 1.66 H HCO3/H2CO3 Ratio 19:1 ABG pH 7.38 ABG pCO2 55.3 H ABG pO2 36.5 L* ABG HCO3 32.1 H ABG O2 Saturation 67.4 L ABG Base Excess 5.7 FiO2 5L Sodium Potassium Chloride Carbon Dioxide Anion Gap BUN Creatinine Est GFR ( Amer) Est GFR (Non-Af Amer) Glucose Calcium Magnesium Urine Color DARK YELLOW Urine Appearance CLOUDY Urine pH 5.0 Ur Specific [place] > 1.060 Urine Protein 100 H Urine Glucose (UA) NEGATIVE Urine Ketones NEGATIVE Urine Blood NEGATIVE Urine Nitrite NEGATIVE Ur Leukocyte Esterase TRACE H Urine WBC (Auto) 1 Urine RBC (Auto) 1 03/27/17 03/27/17 05:28 05:35 WBC RBC Hgb Hct MCV MCH MCHC RDW Plt Count Seg Neutrophils % Lymphocytes % Monocytes % Eosinophils % Basophils % Absolute Neutrophils Absolute Lymphocytes Absolute Monocytes Absolute Eosinophils Absolute Basophils Carbonic Acid 1.51 H HCO3/H2CO3 Ratio 18:1 ABG pH 7.37 ABG pCO2 50.1 H ABG pO2 60.9 L ABG HCO3 28.5 H ABG O2 Saturation 90.5 L ABG Base Excess 2.5 FiO2 40% Sodium 143.4 Potassium 4.5 Chloride 104 Carbon Dioxide 29 Anion Gap 10 BUN 18 Creatinine 1.19 Est GFR ( Amer) 55 L Est GFR (Non-Af Amer) 45 L Glucose 144 H Calcium 10.1 Magnesium 2.0 Urine Color Urine Appearance Urine pH Ur Specific [place] Urine Protein Urine Glucose (UA) Urine Ketones Urine Blood Urine Nitrite Ur Leukocyte Esterase Urine WBC (Auto) Urine RBC (Auto) 03/26/17 03/26/17 03/26/17 14:44 14:44 21:30 Creatine Kinase 121 134 CK-MB (CK-2) 1.74 Troponin I < 0.012 03/26/17 03/27/17 03/27/17 21:30 05:28 05:28 Creatine Kinase 118 CK-MB (CK-2) 2.10 1.84 Troponin I < 0.012 < 0.012 Impressions: Chest/Abdomen CTA 03/26/17 12:47 IMPRESSION: No CT angio evidence of acute pulmonary emboli. Bilateral lower lobe airspace disease atelectasis versus pneumonia No pleural effusions or pneumothorax Nonspecific mild mediastinal adenopathy Chest X-Ray 03/27/17 06:00 IMPRESSION: Minimal bandlike atelectasis right middle lobe near the minor fissure. Assessment & Plan - Diagnosis (1) COPD exacerbation Is this a current diagnosis for this admission?: Yes Plan: Continue DuoNeb (2) Congestive heart failure Qualifiers: Congestive heart failure type: diastolic Is this a current diagnosis for this admission?: Yes (3) Hypoxia Is this a current diagnosis for this admission?: Yes Plan: Supplemental oxygen as needed (4) Pneumonia Qualifiers: Pneumonia type: due to unspecified organism Laterality: bilateral Lung location: lower lobe of lung Qualified Code(s): J18.9 - Pneumonia, unspecified organism Is this a current diagnosis for this admission?: Yes Plan: CT scan bibasilar infiltrates right greater than left no positive cultures at this time the patient does not show strong response consider fiberoptic bronchoscopy for lavage (5) Rheumatoid arthritis Qualifiers: Rheumatoid arthritis location: unspecified site Is this a current diagnosis for this admission?: Yes Plan: Current therapy patient is extremely immunocompromised not to mention agents that are pulmonary toxic - Time Critical Time spent with patient: 35 or more minutes
[2017-03-28 04:11] LABS: ANION GAP 8 (5-19); BLOOD UREA NITROGEN 26 mg/dL (7-20); CALCIUM 10.3 mg/dL (8.4-10.2); CARBON DIOXIDE 31 mmol/L (22-30); CHLORIDE 105 mmol/L (98-107); CREATININE RESULT 1.29 mg/dL (0.52-1.25); GLUCOSE 150 mg/dL (75-110); POTASSIUM 4.2 mmol/L (3.6-5.0); SODIUM 143.5 mmol/L (137-145)
[2017-03-28] MEDS: METHYLPREDNISOLONE INJ 125 MG/2 ML SDV IV SCH ×3 (06:38→18:27)
[2017-03-28 07:29] LABS: HEMATOCRIT 34.8 % (36.0-47.0); HEMOGLOBIN 11.8 g/dL (12.0-15.5); HGB HCT DIFFERENCE 0.6; MEAN CORPUSCULAR HEMOGLOBIN 33.2 pg (27.0-33.4); RED BLOOD COUNT 3.57 10^6/uL (3.72-5.28); RED CELL DISTRIBUTION WIDTH 15.4 % (11.5-14.0); WHITE BLOOD COUNT 16.5 10^3/uL (4.0-10.5)
[2017-03-28 07:33] LABS: MEAN CORPUSCULAR VOLUME 98 fl (80-97)
[2017-03-28 07:50] LABS: BASOPHILS % (MANUAL) 0 % (0-2); EOSINOPHILS % (MANUAL) 0 % (0-6); LYMPHOCYTES % (MANUAL) 12 % (13-45); NUCLEATED RED BLOOD CELLS 4 /100 WBC (0); TOTAL CELLS COUNTED 100
[2017-03-28 07:54] LABS: ANISOCYTOSIS SLIGHT; TOXIC GRANULATION 1+
[2017-03-28] MEDS: IPRATROPIUM/ALBUTEROL 0.5-2.5 MG/3 ML AMPUL NEB SCH ×4 (08:53→20:46)
--- NOTE | 2017-03-28 11:15 | PDOC PROGRESS REPORT ---
Subjective Progress Note for:: 03/28/17 Subjective:: Patient is feeling much better patient's denied any chest pain denied any shortness of the breath. Physical Exam Vital Signs: Temp Pulse Resp BP Pulse Ox 97.5 F 93 20 133/90 H 92 03/28/17 03:45 03/28/17 08:53 03/28/17 10:00 03/28/17 08:47 03/28/17 10:00 Intake & Output 03/27/17 03/28/17 03/29/17 06:59 06:59 06:59 Intake Total 50 571 Output Total 200 100 Balance -150 471 Weight 90.9 kg 90 kg General appearance: PRESENT: no acute distress, well-developed, well-nourished Head exam: PRESENT: atraumatic, normocephalic Eye exam: PRESENT: conjunctiva pink, EOMI, PERRLA. ABSENT: scleral icterus Ear exam: PRESENT: normal external ear exam Mouth exam: PRESENT: moist, tongue midline Neck exam: PRESENT: full ROM. ABSENT: carotid bruit, JVD, lymphadenopathy, thyromegaly Respiratory exam: PRESENT: clear to auscultation jany Cardiovascular exam: PRESENT: RRR. ABSENT: diastolic murmur, rubs, systolic murmur Pulses: PRESENT: normal dorsalis pedis pul, +2 pedal pulses bilateral Vascular exam: PRESENT: normal capillary refill GI/Abdominal exam: PRESENT: normal bowel sounds, soft. ABSENT: distended, guarding, mass, organolmegaly, rebound, tenderness Rectal exam: PRESENT: deferred Extremities exam: ABSENT: full ROM, left AKA, right AKA, left BKA, right BKA, calf tenderness, joint swelling, pedal edema, tenderness, other Neurological exam: PRESENT: alert, awake, oriented to person, oriented to place , oriented to time, oriented to situation, CN II-XII grossly intact. ABSENT: motor sensory deficit Psychiatric exam: PRESENT: appropriate affect, normal mood. ABSENT: homicidal ideation, suicidal ideation Skin exam: PRESENT: dry, intact, warm. ABSENT: cyanosis, rash Results Laboratory Results: 03/28/17 07:15 03/28/17 03:36 03/28/17 03/28/17 03/28/17 03:36 03:36 07:15 WBC Cancelled 16.5 H RBC Cancelled 3.57 L Hgb Cancelled 11.8 L Hct Cancelled 34.8 L MCV Cancelled 98 H MCH Cancelled 33.2 MCHC Cancelled 34.0 RDW Cancelled 15.4 H Plt Count Cancelled 226 Seg Neutrophils % Cancelled Not Reportable Lymphocytes % Cancelled Not Reportable Monocytes % Cancelled Not Reportable Eosinophils % Cancelled Not Reportable Basophils % Cancelled Not Reportable Absolute Neutrophils Cancelled Not Reportable Absolute Lymphocytes Cancelled Not Reportable Absolute Monocytes Cancelled Not Reportable Absolute Eosinophils Cancelled Not Reportable Absolute Basophils Cancelled Not Reportable Sodium 143.5 Potassium 4.2 Chloride 105 Carbon Dioxide 31 H Anion Gap 8 BUN 26 H Creatinine 1.29 H Est GFR ( Amer) 50 L Est GFR (Non-Af Amer) 41 L Glucose 150 H Calcium 10.3 H 03/26/17 19:10 Sputum Gram Stain - Final 03/26/17 19:10 Sputum Sputum Culture - Final NORMAL JULEE 03/26/17 03/26/17 03/26/17 14:44 14:44 21:30 Creatine Kinase 121 134 CK-MB (CK-2) 1.74 Troponin I < 0.012 03/26/17 03/27/17 03/27/17 21:30 05:28 05:28 Creatine Kinase 118 CK-MB (CK-2) 2.10 1.84 Troponin I < 0.012 < 0.012 Impressions: Chest/Abdomen CTA 03/26/17 12:47 IMPRESSION: No CT angio evidence of acute pulmonary emboli. Bilateral lower lobe airspace disease atelectasis versus pneumonia No pleural effusions or pneumothorax Nonspecific mild mediastinal adenopathy Chest X-Ray 03/27/17 06:00 IMPRESSION: Minimal bandlike atelectasis right middle lobe near the minor fissure. Assessment & Plan - Diagnosis (1) Acute respiratory distress Is this a current diagnosis for this admission?: Yes Plan: Continues to current medications (2) Pneumonia Qualifiers: Pneumonia type: due to unspecified organism Laterality: bilateral Lung location: lower lobe of lung Qualified Code(s): J18.9 - Pneumonia, unspecified organism Is this a current diagnosis for this admission?: Yes Plan: Continues to IV antibiotic (3) COPD exacerbation Is this a current diagnosis for this admission?: Yes Plan: Start the nebulizer treatment and IV steroid (4) Congestive heart failure Qualifiers: Congestive heart failure type: diastolic Is this a current diagnosis for this admission?: Yes Plan: Currently stable continues to current medication (5) Hypertension Qualifiers: Hypertension type: essential hypertension Qualified Code(s): I10 - Essential (primary) hypertension Is this a current diagnosis for this admission?: Yes Plan: Stable (6) Hypoxia Is this a current diagnosis for this admission?: Yes Plan: With a combination of the COPD and pneumonia (7) Rheumatoid arthritis Qualifiers: Rheumatoid arthritis location: unspecified site Is this a current diagnosis for this admission?: Yes Plan: Currently hold the methotrexate - Time Time Spent with patient: 15-24 minutes Medications reviewed and adjusted accordingly: Yes Anticipated discharge: Home Within: Other - Inpatient Certification Medical Necessity: Need Close Monitoring Due to Risk of Patient Decompensation, Need for IV Antibiotics Post Hospital Care: D/C Associate Professor Of History Documentation - Plan Summary Plan Summary: Continues to current medications
[2017-03-28] MEDS: FOLIC ACID 1 MG TABLET PO SCH (11:48)
[2017-03-28] MEDS: AMLODIPINE BESYLATE 10 MG TABLET PO SCH (11:49)
[2017-03-28] MEDS: CALCIUM CARBONATE 500 MG TABLET PO SCH (11:49)
[2017-03-28] MEDS: GUAIFENESIN 600 MG TABLET.SA PO SCH ×2 (11:50→21:14)
[2017-03-28] MEDS: BENAZEPRIL HCL 10 MG TABLET PO SCH (11:50)
[2017-03-28] MEDS: ATENOLOL 50 MG TABLET PO SCH (11:50)
[2017-03-28] MEDS: ENOXAPARIN SODIUM INJ 40 MG/0.4 ML DISP.SYRIN SUBCUT SCH (11:53)
[2017-03-28] MEDS: DOCUSATE SODIUM 100 MG CAPSULE PO SCH (12:08)
[2017-03-28] MEDS: CHOLECALCIFEROL (D3) 1,000 UNIT TABLET PO SCH (12:09)
[2017-03-28] MEDS: CEFEPIME 1 GM/D5W RTU 1 GM/50 ML RTUPB IV SCH ×2 (12:43→21:14)
[2017-03-28] MEDS: LEVOFLOXACIN 500 MG/D5W RTU 500 MG/100 ML RTUPB IV SCH (12:45)
--- NOTE | 2017-03-28 14:58 | PDOC PROGRESS REPORT ---
Subjective Progress Note for:: 03/28/17 - Dyspnea Subjective:: Feeling much better Physical Exam Vital Signs: Temp Pulse Resp BP Pulse Ox 98.2 F 95 18 132/69 H 94 03/28/17 12:00 03/28/17 12:27 03/28/17 12:27 03/28/17 12:00 03/28/17 12:27 Intake & Output 03/27/17 03/28/17 03/29/17 06:59 06:59 06:59 Intake Total 50 571 300 Output Total 200 100 Balance -150 471 300 Weight 90.9 kg 90 kg General appearance: PRESENT: no acute distress, cooperative, disheveled, obese, well-developed Head exam: PRESENT: atraumatic, normocephalic Eye exam: PRESENT: conjunctiva pale, EOMI Mouth exam: PRESENT: dry mucosa, neck supple, tongue midline Neck exam: ABSENT: carotid bruit, JVD, lymphadenopathy, thyromegaly Respiratory exam: PRESENT: decreased breath sounds, prolonged expiratory phas, rhonchi, symmetrical, unlabored, wheezes. ABSENT: retraction, stridor, tachypnea Cardiovascular exam: PRESENT: RRR, +S1, +S2 Pulses: PRESENT: normal radial pulses GI/Abdominal exam: PRESENT: normal bowel sounds, soft. ABSENT: distended, guarding, mass, organolmegaly, rebound, tenderness Rectal exam: PRESENT: deferred Gentrourinary exam: PRESENT: indwelling catheter Musculoskeletal exam: PRESENT: normal inspection Neurological exam: PRESENT: alert, awake Psychiatric exam: PRESENT: normal mood Skin exam: PRESENT: dry, warm Results Laboratory Results: 03/28/17 07:15 03/28/17 03:36 03/28/17 03/28/17 03/28/17 03:36 03:36 07:15 WBC Cancelled 16.5 H RBC Cancelled 3.57 L Hgb Cancelled 11.8 L Hct Cancelled 34.8 L MCV Cancelled 98 H MCH Cancelled 33.2 MCHC Cancelled 34.0 RDW Cancelled 15.4 H Plt Count Cancelled 226 Seg Neutrophils % Cancelled Not Reportable Lymphocytes % Cancelled Not Reportable Monocytes % Cancelled Not Reportable Eosinophils % Cancelled Not Reportable Basophils % Cancelled Not Reportable Absolute Neutrophils Cancelled Not Reportable Absolute Lymphocytes Cancelled Not Reportable Absolute Monocytes Cancelled Not Reportable Absolute Eosinophils Cancelled Not Reportable Absolute Basophils Cancelled Not Reportable Sodium 143.5 Potassium 4.2 Chloride 105 Carbon Dioxide 31 H Anion Gap 8 BUN 26 H Creatinine 1.29 H Est GFR ( Amer) 50 L Est GFR (Non-Af Amer) 41 L Glucose 150 H Calcium 10.3 H 03/26/17 15:30 Clean Catch Midstream Urine Culture - Final NO GROWTH 2 DAYS 03/26/17 19:10 Sputum Gram Stain - Final 03/26/17 19:10 Sputum Sputum Culture - Final NORMAL JULEE 03/26/17 03/26/17 03/26/17 14:44 14:44 21:30 Creatine Kinase 121 134 CK-MB (CK-2) 1.74 Troponin I < 0.012 03/26/17 03/27/17 03/27/17 21:30 05:28 05:28 Creatine Kinase 118 CK-MB (CK-2) 2.10 1.84 Troponin I < 0.012 < 0.012 Impressions: Chest/Abdomen CTA 03/26/17 12:47 IMPRESSION: No CT angio evidence of acute pulmonary emboli. Bilateral lower lobe airspace disease atelectasis versus pneumonia No pleural effusions or pneumothorax Nonspecific mild mediastinal adenopathy Chest X-Ray 03/27/17 06:00 IMPRESSION: Minimal bandlike atelectasis right middle lobe near the minor fissure. Assessment & Plan - Diagnosis (1) COPD exacerbation Is this a current diagnosis for this admission?: Yes Plan: Improving (2) Congestive heart failure Qualifiers: Congestive heart failure type: diastolic Is this a current diagnosis for this admission?: Yes (3) Hypoxia Is this a current diagnosis for this admission?: Yes (4) Pneumonia Qualifiers: Pneumonia type: due to unspecified organism Laterality: bilateral Lung location: lower lobe of lung Qualified Code(s): J18.9 - Pneumonia, unspecified organism Is this a current diagnosis for this admission?: Yes (5) Rheumatoid arthritis Qualifiers: Rheumatoid arthritis location: unspecified site Is this a current diagnosis for this admission?: Yes - Time Critical Time spent with patient: 15-24 minutes
[2017-03-29 04:00] LABS: HEMATOCRIT 32.8 % (36.0-47.0); HEMOGLOBIN 11.5 g/dL (12.0-15.5); HGB HCT DIFFERENCE 1.7; MEAN CORPUSCULAR HEMOGLOBIN 35.3 pg (27.0-33.4); MEAN CORPUSCULAR HGB CONC 34.9 g/dL (32.0-36.0); MEAN CORPUSCULAR VOLUME 101 fl (80-97); RED BLOOD COUNT 3.25 10^6/uL (3.72-5.28); RED CELL DISTRIBUTION WIDTH 15.7 % (11.5-14.0); WHITE BLOOD COUNT 15.3 10^3/uL (4.0-10.5)
[2017-03-29 04:09] LABS: ANION GAP 9 (5-19); BLOOD UREA NITROGEN 30 mg/dL (7-20); CALCIUM 10.4 mg/dL (8.4-10.2); CARBON DIOXIDE 29 mmol/L (22-30); CHLORIDE 105 mmol/L (98-107); CREATININE RESULT 1.21 mg/dL (0.52-1.25); GLUCOSE 130 mg/dL (75-110); POTASSIUM 4.2 mmol/L (3.6-5.0); SODIUM 142.8 mmol/L (137-145)
[2017-03-29 04:35] LABS: BAND NEUTROPHILS % (MANUAL) 2 % (3-5); BASOPHILS % (MANUAL) 0 % (0-2); EOSINOPHILS % (MANUAL) 0 % (0-6); LYMPHOCYTES % (MANUAL) 5 % (13-45); TOTAL CELLS COUNTED 100
[2017-03-29 04:38] LABS: ANISOCYTOSIS SLIGHT; OVALOCYTES SLIGHT; POIKILOCYTOSIS SLIGHT; POLYCHROMASIA SLIGHT; TARGET CELLS SLIGHT; TEAR DROP CELLS SLIGHT
[2017-03-29] MEDS: IPRATROPIUM/ALBUTEROL 0.5-2.5 MG/3 ML AMPUL NEB SCH ×4 (08:29→21:31)
--- NOTE | 2017-03-29 09:37 | RADIOLOGY REPORT (SQ) ---
EXAM DESCRIPTION: CHEST PA/LAT COMPLETED DATE/TIME: 03/29/2017 9:08 am REASON FOR STUDY: pnemonia COMPARISON: June 2016 EXAM PARAMETERS: NUMBER OF VIEWS: two views TECHNIQUE: Digital Frontal and Lateral radiographic views of the chest acquired. RADIATION DOSE: NA LIMITATIONS: none FINDINGS: LUNGS AND PLEURA: There is focal airspace consolidation in the right lung base best seen i n the lateral projection consistent with a pneumonic infiltrate. Remaining lung clarke are clear. MEDIASTINUM AND HILAR STRUCTURES: No masses or contour abnormalities. HEART AND VASCULAR STRUCTURES: Cardiac silhouette appears mildly enlarged. A tortuous thoracic aorta is again identified. BONES: Degenerative changes are again identified in the thoracic spine HARDWARE: AICD device is unchanged in position. OTHER: No other significant finding. IMPRESSION: Focal airspace consolidation in the right lung base as noted above consistent with a pne umonic infiltrate. Remaining lung clarke are clear. Other findings as noted above TECHNICAL DOCUMENTATION: JOB ID: [id number] [employer]- All Rights Reserved
--- NOTE | 2017-03-29 09:42 | PDOC PROGRESS REPORT ---
Subjective Progress Note for:: 03/29/17 Subjective:: Patient is currently doing fair. Patient's still have a cough. Patient's denied any short of breath denied any chest pain Physical Exam Vital Signs: Temp Pulse Resp BP Pulse Ox 98.4 F 93 21 H 126/80 H 93 03/29/17 07:57 03/29/17 07:57 03/29/17 08:00 03/29/17 07:57 03/29/17 08:00 Intake & Output 03/28/17 03/29/17 03/30/17 06:59 06:59 06:59 Intake Total 571 762 300 Output Total 100 650 Balance 471 112 300 Weight 90 kg General appearance: PRESENT: no acute distress, well-developed, well-nourished Head exam: PRESENT: atraumatic, normocephalic Eye exam: PRESENT: conjunctiva pink, EOMI, PERRLA. ABSENT: scleral icterus Ear exam: PRESENT: normal external ear exam Mouth exam: PRESENT: moist, tongue midline Neck exam: PRESENT: full ROM. ABSENT: carotid bruit, JVD, lymphadenopathy, thyromegaly Respiratory exam: PRESENT: clear to auscultation jany Cardiovascular exam: PRESENT: RRR. ABSENT: diastolic murmur, rubs, systolic murmur Pulses: PRESENT: normal dorsalis pedis pul, +2 pedal pulses bilateral Vascular exam: PRESENT: normal capillary refill GI/Abdominal exam: PRESENT: normal bowel sounds, soft. ABSENT: distended, guarding, mass, organolmegaly, rebound, tenderness Rectal exam: PRESENT: deferred Extremities exam: ABSENT: full ROM, left AKA, right AKA, left BKA, right BKA, calf tenderness, joint swelling, pedal edema, tenderness, other Musculoskeletal exam: PRESENT: ambulatory Neurological exam: PRESENT: alert, awake, oriented to person, oriented to place , oriented to time, oriented to situation, CN II-XII grossly intact. ABSENT: motor sensory deficit Psychiatric exam: PRESENT: appropriate affect, normal mood. ABSENT: homicidal ideation, suicidal ideation Skin exam: PRESENT: dry, intact, warm. ABSENT: cyanosis, rash Results Laboratory Results: 03/29/17 03:36 03/29/17 03:36 03/29/17 03/29/17 03:36 03:36 WBC 15.3 H RBC 3.25 L Hgb 11.5 L Hct 32.8 L MCV 101 H MCH 35.3 H MCHC 34.9 RDW 15.7 H Plt Count 201 Seg Neutrophils % Not Reportable Lymphocytes % Not Reportable Monocytes % Not Reportable Eosinophils % Not Reportable Basophils % Not Reportable Absolute Neutrophils Not Reportable Absolute Lymphocytes Not Reportable Absolute Monocytes Not Reportable Absolute Eosinophils Not Reportable Absolute Basophils Not Reportable Sodium 142.8 Potassium 4.2 Chloride 105 Carbon Dioxide 29 Anion Gap 9 BUN 30 H Creatinine 1.21 Est GFR ( Amer) 54 L Est GFR (Non-Af Amer) 45 L Glucose 130 H Calcium 10.4 H 03/26/17 15:30 Clean Catch Midstream Urine Culture - Final NO GROWTH 2 DAYS 03/26/17 19:10 Sputum Gram Stain - Final 03/26/17 19:10 Sputum Sputum Culture - Final NORMAL JULEE 03/26/17 03/26/17 03/26/17 14:44 14:44 21:30 Creatine Kinase 121 134 CK-MB (CK-2) 1.74 Troponin I < 0.012 03/26/17 03/27/17 03/27/17 21:30 05:28 05:28 Creatine Kinase 118 CK-MB (CK-2) 2.10 1.84 Troponin I < 0.012 < 0.012 Impressions: Chest/Abdomen CTA 03/26/17 12:47 IMPRESSION: No CT angio evidence of acute pulmonary emboli. Bilateral lower lobe airspace disease atelectasis versus pneumonia No pleural effusions or pneumothorax Nonspecific mild mediastinal adenopathy Chest X-Ray 03/29/17 00:00 IMPRESSION: Focal airspace consolidation in the right lung base as noted above consistent with a pneumonic infiltrate. Remaining lung clarke are clear. Other findings as noted above Assessment & Plan - Diagnosis (1) Acute respiratory distress Is this a current diagnosis for this admission?: Yes Plan: Continues to current medications (2) Pneumonia Qualifiers: Pneumonia type: due to unspecified organism Laterality: bilateral Lung location: lower lobe of lung Qualified Code(s): J18.9 - Pneumonia, unspecified organism Is this a current diagnosis for this admission?: Yes Plan: Continues to IV antibiotic (3) COPD exacerbation Is this a current diagnosis for this admission?: Yes Plan: Start the nebulizer treatment and IV steroid (4) Congestive heart failure Qualifiers: Congestive heart failure type: diastolic Is this a current diagnosis for this admission?: Yes Plan: Currently stable continues to current medication (5) Hypertension Qualifiers: Hypertension type: essential hypertension Qualified Code(s): I10 - Essential (primary) hypertension Is this a current diagnosis for this admission?: Yes Plan: Stable (6) Hypoxia Is this a current diagnosis for this admission?: Yes Plan: With a combination of the COPD and pneumonia (7) Rheumatoid arthritis Qualifiers: Rheumatoid arthritis location: unspecified site Is this a current diagnosis for this admission?: Yes Plan: Currently hold the methotrexate - Time Time Spent with patient: 15-24 minutes Medications reviewed and adjusted accordingly: Yes Anticipated discharge: Home Within: Other - Inpatient Certification Medical Necessity: Need Close Monitoring Due to Risk of Patient Decompensation, Need For IV Fluids, Need for IV Antibiotics Post Hospital Care: D/C Public Health Clinical Nurse Specialist Documentation - Plan Summary Plan Summary: Continues to IV antibiotic repeat the chest x-ray discussed with the Dr. Underwood about the patient's current conditions suggested continues to current medications
[2017-03-29] MEDS: GUAIFENESIN SYRP 200 MG/10 ML UDC PO PRN ×2 (10:06→19:04)
[2017-03-29] MEDS: FOLIC ACID 1 MG TABLET PO SCH (10:06)
[2017-03-29] MEDS: ATENOLOL 50 MG TABLET PO SCH (10:07)
[2017-03-29] MEDS: GUAIFENESIN 600 MG TABLET.SA PO SCH (10:07)
[2017-03-29] MEDS: CHOLECALCIFEROL (D3) 1,000 UNIT TABLET PO SCH (10:08)
[2017-03-29] MEDS: LEVOFLOXACIN 500 MG TABLET PO SCH (10:08)
[2017-03-29] MEDS: PREDNISONE 20 MG TABLET PO SCH ×2 (10:08→18:43)
[2017-03-29] MEDS: AMLODIPINE BESYLATE 10 MG TABLET PO SCH (10:08)
[2017-03-29] MEDS: HYDROCODONE BIT/HOMATROPINE 5-1.5 MG TABLET PO PRN ×2 (10:09→19:04)
[2017-03-29] MEDS: CEFEPIME 1 GM/D5W RTU 1 GM/50 ML RTUPB IV SCH (10:10)
[2017-03-29] MEDS: ENOXAPARIN SODIUM INJ 40 MG/0.4 ML DISP.SYRIN SUBCUT SCH (10:11)
[2017-03-29] MEDS: CALCIUM CARBONATE 500 MG TABLET PO SCH (10:13)
[2017-03-29] MEDS: DOCUSATE SODIUM 100 MG CAPSULE PO SCH (10:14)
[2017-03-29] MEDS: BENAZEPRIL HCL 10 MG TABLET PO SCH (10:14)
[2017-03-29] MEDS: BENZONATATE 100 MG CAPSULE PO SCH (13:19)
--- NOTE | 2017-03-29 18:27 | PDOC PROGRESS REPORT ---
Subjective Progress Note for:: 03/29/17 Subjective:: still coughing Physical Exam Vital Signs: Temp Pulse Resp BP Pulse Ox 98.4 F 93 21 H 126/80 H 93 03/29/17 07:57 03/29/17 07:57 03/29/17 08:00 03/29/17 07:57 03/29/17 08:00 Intake & Output 03/28/17 03/29/17 03/30/17 06:59 06:59 06:59 Intake Total 571 762 300 Output Total 100 650 Balance 471 112 300 Weight 90 kg General appearance: PRESENT: no acute distress, cooperative, disheveled, obese, well-developed Head exam: PRESENT: atraumatic, normocephalic Eye exam: PRESENT: conjunctiva pale, EOMI Mouth exam: PRESENT: dry mucosa, neck supple, tongue midline Neck exam: ABSENT: carotid bruit, JVD, lymphadenopathy, thyromegaly Respiratory exam: PRESENT: decreased breath sounds, prolonged expiratory phas, rales, rhonchi, symmetrical, unlabored, wheezes. ABSENT: retraction, stridor, tachypnea Cardiovascular exam: PRESENT: RRR, +S1, +S2 Pulses: PRESENT: normal radial pulses GI/Abdominal exam: PRESENT: normal bowel sounds, soft. ABSENT: distended, guarding, mass, organolmegaly, rebound, tenderness Rectal exam: PRESENT: deferred Musculoskeletal exam: PRESENT: normal inspection Neurological exam: PRESENT: alert, awake Psychiatric exam: PRESENT: normal mood Skin exam: PRESENT: dry, warm Results Laboratory Results: 03/29/17 03:36 03/29/17 03:36 03/29/17 03/29/17 03:36 03:36 WBC 15.3 H RBC 3.25 L Hgb 11.5 L Hct 32.8 L MCV 101 H MCH 35.3 H MCHC 34.9 RDW 15.7 H Plt Count 201 Seg Neutrophils % Not Reportable Lymphocytes % Not Reportable Monocytes % Not Reportable Eosinophils % Not Reportable Basophils % Not Reportable Absolute Neutrophils Not Reportable Absolute Lymphocytes Not Reportable Absolute Monocytes Not Reportable Absolute Eosinophils Not Reportable Absolute Basophils Not Reportable Sodium 142.8 Potassium 4.2 Chloride 105 Carbon Dioxide 29 Anion Gap 9 BUN 30 H Creatinine 1.21 Est GFR ( Amer) 54 L Est GFR (Non-Af Amer) 45 L Glucose 130 H Calcium 10.4 H 03/26/17 15:30 Clean Catch Midstream Urine Culture - Final NO GROWTH 2 DAYS 03/26/17 19:10 Sputum Gram Stain - Final 03/26/17 19:10 Sputum Sputum Culture - Final NORMAL JULEE 03/26/17 03/26/17 03/26/17 14:44 14:44 21:30 Creatine Kinase 121 134 CK-MB (CK-2) 1.74 Troponin I < 0.012 03/26/17 03/27/17 03/27/17 21:30 05:28 05:28 Creatine Kinase 118 CK-MB (CK-2) 2.10 1.84 Troponin I < 0.012 < 0.012 Impressions: Chest/Abdomen CTA 03/26/17 12:47 IMPRESSION: No CT angio evidence of acute pulmonary emboli. Bilateral lower lobe airspace disease atelectasis versus pneumonia No pleural effusions or pneumothorax Nonspecific mild mediastinal adenopathy Chest X-Ray 03/29/17 00:00 IMPRESSION: Focal airspace consolidation in the right lung base as noted above consistent with a pneumonic infiltrate. Remaining lung clarke are clear. Other findings as noted above Assessment & Plan - Diagnosis (1) COPD exacerbation Is this a current diagnosis for this admission?: Yes Plan: Improving (2) Congestive heart failure Qualifiers: Congestive heart failure type: diastolic Is this a current diagnosis for this admission?: Yes (3) Hypoxia Is this a current diagnosis for this admission?: Yes Plan: Supplemental oxygen as needed (4) Pneumonia Qualifiers: Pneumonia type: due to unspecified organism Laterality: bilateral Lung location: lower lobe of lung Qualified Code(s): J18.9 - Pneumonia, unspecified organism Is this a current diagnosis for this admission?: Yes (5) Rheumatoid arthritis Qualifiers: Rheumatoid arthritis location: unspecified site Is this a current diagnosis for this admission?: Yes - Time Critical Time spent with patient: 25-34 minutes
[2017-03-30] MEDS: BENZONATATE 100 MG CAPSULE PO SCH ×4 (00:06→21:24)
[2017-03-30] MEDS: GUAIFENESIN 600 MG TABLET.SA PO SCH ×3 (00:06→21:24)
[2017-03-30] MEDS: CEFEPIME 1 GM/D5W RTU 1 GM/50 ML RTUPB IV SCH ×3 (00:07→21:23)
[2017-03-30 06:27] LABS: HEMATOCRIT 33.9 % (36.0-47.0); HEMOGLOBIN 11.7 g/dL (12.0-15.5); HGB HCT DIFFERENCE 1.2; MEAN CORPUSCULAR HEMOGLOBIN 33.8 pg (27.0-33.4); MEAN CORPUSCULAR HGB CONC 34.5 g/dL (32.0-36.0); MEAN CORPUSCULAR VOLUME 98 fl (80-97); RED BLOOD COUNT 3.46 10^6/uL (3.72-5.28); RED CELL DISTRIBUTION WIDTH 15.3 % (11.5-14.0); WHITE BLOOD COUNT 15.6 10^3/uL (4.0-10.5)
[2017-03-30 06:40] LABS: ANION GAP 8 (5-19); BLOOD UREA NITROGEN 33 mg/dL (7-20); CALCIUM 9.9 mg/dL (8.4-10.2); CARBON DIOXIDE 28 mmol/L (22-30); CHLORIDE 106 mmol/L (98-107); CREATININE RESULT 1.14 mg/dL (0.52-1.25); GLUCOSE 106 mg/dL (75-110); POTASSIUM 4.6 mmol/L (3.6-5.0); SODIUM 141.5 mmol/L (137-145)
[2017-03-30 06:52] LABS: BAND NEUTROPHILS % (MANUAL) 2 % (3-5); BASOPHILS % (MANUAL) 0 % (0-2); EOSINOPHILS % (MANUAL) 0 % (0-6); LYMPHOCYTES % (MANUAL) 9 % (13-45); TOTAL CELLS COUNTED 100
[2017-03-30 06:53] LABS: ANISOCYTOSIS SLIGHT; TOXIC VACUOLATION PRESENT
[2017-03-30] MEDS: IPRATROPIUM/ALBUTEROL 0.5-2.5 MG/3 ML AMPUL NEB SCH ×4 (08:09→20:06)
[2017-03-30] MEDS: ENOXAPARIN SODIUM INJ 40 MG/0.4 ML DISP.SYRIN SUBCUT SCH (09:43)
[2017-03-30] MEDS: AMLODIPINE BESYLATE 10 MG TABLET PO SCH (09:43)
[2017-03-30] MEDS: PREDNISONE 20 MG TABLET PO SCH (09:43)
[2017-03-30] MEDS: FOLIC ACID 1 MG TABLET PO SCH (09:44)
[2017-03-30] MEDS: LEVOFLOXACIN 500 MG TABLET PO SCH (09:44)
[2017-03-30] MEDS: CALCIUM CARBONATE 500 MG TABLET PO SCH (09:44)
[2017-03-30] MEDS: CHOLECALCIFEROL (D3) 1,000 UNIT TABLET PO SCH (09:44)
[2017-03-30] MEDS: BENAZEPRIL HCL 10 MG TABLET PO SCH (09:49)
[2017-03-30] MEDS: DOCUSATE SODIUM 100 MG CAPSULE PO SCH (09:50)
[2017-03-30] MEDS: ATENOLOL 50 MG TABLET PO SCH (11:19)
--- NOTE | 2017-03-30 12:48 | PDOC PROGRESS REPORT ---
Subjective Progress Note for:: 03/30/17 Subjective:: Patient is currently doing fair. Patient's denied any chest pain denied any shortness of the breath Since cough is also getting better Physical Exam Vital Signs: Temp Pulse Resp BP Pulse Ox 98.1 F 64 18 121/75 94 03/30/17 07:40 03/30/17 08:09 03/30/17 08:09 03/30/17 07:40 03/30/17 07:40 Intake & Output 03/29/17 03/30/17 03/31/17 06:59 06:59 06:59 Intake Total 762 1810 Output Total 650 1050 Balance 112 760 Weight 90 kg General appearance: PRESENT: no acute distress, well-developed, well-nourished Head exam: PRESENT: atraumatic, normocephalic Eye exam: PRESENT: conjunctiva pink, EOMI, PERRLA. ABSENT: scleral icterus Ear exam: PRESENT: normal external ear exam Mouth exam: PRESENT: moist, tongue midline Neck exam: PRESENT: full ROM. ABSENT: carotid bruit, JVD, lymphadenopathy, thyromegaly Respiratory exam: PRESENT: clear to auscultation jany Cardiovascular exam: PRESENT: RRR. ABSENT: diastolic murmur, rubs, systolic murmur Pulses: PRESENT: normal dorsalis pedis pul, +2 pedal pulses bilateral Vascular exam: PRESENT: normal capillary refill GI/Abdominal exam: PRESENT: normal bowel sounds, soft. ABSENT: distended, guarding, mass, organolmegaly, rebound, tenderness Rectal exam: PRESENT: deferred Extremities exam: ABSENT: pedal edema Musculoskeletal exam: PRESENT: ambulatory Neurological exam: PRESENT: alert, awake, oriented to person, oriented to place , oriented to time, oriented to situation, CN II-XII grossly intact. ABSENT: motor sensory deficit Psychiatric exam: PRESENT: appropriate affect, normal mood. ABSENT: homicidal ideation, suicidal ideation Skin exam: PRESENT: dry, intact, warm. ABSENT: cyanosis, rash Results Laboratory Results: 03/30/17 06:01 03/30/17 06:01 03/30/17 03/30/17 06:01 06:01 WBC 15.6 H RBC 3.46 L Hgb 11.7 L Hct 33.9 L MCV 98 H MCH 33.8 H MCHC 34.5 RDW 15.3 H Plt Count 217 Seg Neutrophils % Not Reportable Lymphocytes % Not Reportable Monocytes % Not Reportable Eosinophils % Not Reportable Basophils % Not Reportable Absolute Neutrophils Not Reportable Absolute Lymphocytes Not Reportable Absolute Monocytes Not Reportable Absolute Eosinophils Not Reportable Absolute Basophils Not Reportable Sodium 141.5 Potassium 4.6 Chloride 106 Carbon Dioxide 28 Anion Gap 8 BUN 33 H Creatinine 1.14 Est GFR ( Amer) 58 L Est GFR (Non-Af Amer) 48 L Glucose 106 Calcium 9.9 03/26/17 03/26/17 03/26/17 14:44 14:44 21:30 Creatine Kinase 121 134 CK-MB (CK-2) 1.74 Troponin I < 0.012 03/26/17 03/27/17 03/27/17 21:30 05:28 05:28 Creatine Kinase 118 CK-MB (CK-2) 2.10 1.84 Troponin I < 0.012 < 0.012 Impressions: Chest/Abdomen CTA 03/26/17 12:47 IMPRESSION: No CT angio evidence of acute pulmonary emboli. Bilateral lower lobe airspace disease atelectasis versus pneumonia No pleural effusions or pneumothorax Nonspecific mild mediastinal adenopathy Chest X-Ray 03/29/17 00:00 IMPRESSION: Focal airspace consolidation in the right lung base as noted above consistent with a pneumonic infiltrate. Remaining lung clarke are clear. Other findings as noted above Assessment & Plan - Diagnosis (1) Acute respiratory distress Is this a current diagnosis for this admission?: Yes Plan: Currently all resolved (2) Pneumonia Qualifiers: Pneumonia type: due to unspecified organism Laterality: bilateral Lung location: lower lobe of lung Qualified Code(s): J18.9 - Pneumonia, unspecified organism Is this a current diagnosis for this admission?: Yes Plan: Continues to IV antibiotic (3) COPD exacerbation Is this a current diagnosis for this admission?: Yes Plan: Start the nebulizer treatment and IV steroid (4) Congestive heart failure Qualifiers: Congestive heart failure type: diastolic Is this a current diagnosis for this admission?: Yes Plan: Currently stable continues to current medication (5) Hypertension Qualifiers: Hypertension type: essential hypertension Qualified Code(s): I10 - Essential (primary) hypertension Is this a current diagnosis for this admission?: Yes Plan: Stable (6) Hypoxia Is this a current diagnosis for this admission?: Yes Plan: With a combination of the COPD and pneumonia (7) Rheumatoid arthritis Qualifiers: Rheumatoid arthritis location: unspecified site Is this a current diagnosis for this admission?: Yes Plan: Currently hold the methotrexate - Time Time Spent with patient: 15-24 minutes Medications reviewed and adjusted accordingly: Yes Anticipated discharge: Home Within: Other - Inpatient Certification Medical Necessity: Need Close Monitoring Due to Risk of Patient Decompensation, Need for IV Antibiotics Post Hospital Care: D/C Financial Investment Adviser Documentation - Plan Summary Plan Summary: Continues to current IV antibiotic
[2017-03-30] MEDS: HYDROCODONE BIT/HOMATROPINE 5-1.5 MG TABLET PO PRN (22:21)
[2017-03-31] MEDS: BENZONATATE 100 MG CAPSULE PO SCH ×3 (05:32→21:37)
[2017-03-31] MEDS: IPRATROPIUM/ALBUTEROL 0.5-2.5 MG/3 ML AMPUL NEB SCH ×4 (08:51→21:29)
[2017-03-31] MEDS: CEFEPIME 1 GM/D5W RTU 1 GM/50 ML RTUPB IV SCH ×2 (10:19→21:37)
[2017-03-31] MEDS: ATENOLOL 50 MG TABLET PO SCH (10:19)
[2017-03-31] MEDS: CALCIUM CARBONATE 500 MG TABLET PO SCH (10:19)
[2017-03-31] MEDS: AMLODIPINE BESYLATE 10 MG TABLET PO SCH (10:19)
[2017-03-31] MEDS: BENAZEPRIL HCL 10 MG TABLET PO SCH (10:19)
[2017-03-31] MEDS: FOLIC ACID 1 MG TABLET PO SCH (10:20)
[2017-03-31] MEDS: DOCUSATE SODIUM 100 MG CAPSULE PO SCH (10:20)
[2017-03-31] MEDS: PREDNISONE 20 MG TABLET PO SCH (10:20)
[2017-03-31] MEDS: CHOLECALCIFEROL (D3) 1,000 UNIT TABLET PO SCH (10:20)
[2017-03-31] MEDS: GUAIFENESIN 600 MG TABLET.SA PO SCH ×2 (10:20→21:37)
[2017-03-31] MEDS: LEVOFLOXACIN 500 MG TABLET PO SCH (10:20)
[2017-03-31] MEDS: ENOXAPARIN SODIUM INJ 40 MG/0.4 ML DISP.SYRIN SUBCUT SCH (10:20)
--- NOTE | 2017-03-31 12:37 | PDOC PROGRESS REPORT ---
Subjective Progress Note for:: 03/31/17 Subjective:: Patient was seen by the bedside, she was admitted for the management of COPD and pneumonia. She is constantly coughing, the cough is dry Physical Exam Vital Signs: Temp Pulse Resp BP Pulse Ox 98.1 F 94 16 110/81 95 03/31/17 11:59 03/31/17 12:09 03/31/17 12:09 03/31/17 11:59 03/31/17 11:59 Intake & Output 03/30/17 03/31/17 04/01/17 06:59 06:59 06:59 Intake Total 1810 1970 Output Total 1050 Balance 760 1970 Weight 90 kg 92.1 kg General appearance: PRESENT: no acute distress Eye exam: PRESENT: PERRLA Respiratory exam: PRESENT: rhonchi Cardiovascular exam: PRESENT: +S1, +S2 GI/Abdominal exam: PRESENT: soft Neurological exam: PRESENT: alert Results Laboratory Results: 03/30/17 06:01 03/30/17 06:01 03/26/17 03/26/17 03/26/17 14:44 14:44 21:30 Creatine Kinase 121 134 CK-MB (CK-2) 1.74 Troponin I < 0.012 03/26/17 03/27/17 03/27/17 21:30 05:28 05:28 Creatine Kinase 118 CK-MB (CK-2) 2.10 1.84 Troponin I < 0.012 < 0.012 Impressions: Chest/Abdomen CTA 03/26/17 12:47 IMPRESSION: No CT angio evidence of acute pulmonary emboli. Bilateral lower lobe airspace disease atelectasis versus pneumonia No pleural effusions or pneumothorax Nonspecific mild mediastinal adenopathy Chest X-Ray 03/29/17 00:00 IMPRESSION: Focal airspace consolidation in the right lung base as noted above consistent with a pneumonic infiltrate. Remaining lung clarke are clear. Other findings as noted above Assessment & Plan - Diagnosis (1) COPD exacerbation Is this a current diagnosis for this admission?: Yes Plan: She was seen by the bedside she will continue present treatment plan (2) Pneumonia Qualifiers: Pneumonia type: due to unspecified organism Laterality: bilateral Lung location: lower lobe of lung Qualified Code(s): J18.9 - Pneumonia, unspecified organism Is this a current diagnosis for this admission?: Yes
--- NOTE | 2017-03-31 14:03 | PDOC PROGRESS REPORT ---
Subjective Progress Note for:: 03/30/17 - Dyspnea Subjective:: still coughing but otherwise comfortable without complaints Physical Exam Vital Signs: Temp Pulse Resp BP Pulse Ox 98.5 F 82 18 98/58 L 95 03/30/17 12:00 03/30/17 12:09 03/30/17 12:09 03/30/17 12:00 03/30/17 12:00 Intake & Output 03/29/17 03/30/17 03/31/17 06:59 06:59 06:59 Intake Total 762 1810 Output Total 650 1050 Balance 112 760 Weight 90 kg General appearance: PRESENT: no acute distress, cooperative, disheveled, obese, well-developed Head exam: PRESENT: atraumatic, normocephalic Eye exam: PRESENT: conjunctiva pale, EOMI Mouth exam: PRESENT: dry mucosa, neck supple, tongue midline Neck exam: ABSENT: carotid bruit, JVD, lymphadenopathy, thyromegaly Respiratory exam: PRESENT: decreased breath sounds, prolonged expiratory phas, rales - Scattered, rhonchi, symmetrical, unlabored, wheezes - Rare. ABSENT: retraction, stridor, tachypnea Cardiovascular exam: PRESENT: irregular rhythm Pulses: PRESENT: normal radial pulses GI/Abdominal exam: PRESENT: normal bowel sounds, soft. ABSENT: distended, guarding, mass, organolmegaly, rebound, tenderness Extremities exam: PRESENT: +1 edema Neurological exam: PRESENT: alert, awake Skin exam: PRESENT: dry, pallor Results Laboratory Results: 03/30/17 06:01 03/30/17 06:01 03/30/17 03/30/17 06:01 06:01 WBC 15.6 H RBC 3.46 L Hgb 11.7 L Hct 33.9 L MCV 98 H MCH 33.8 H MCHC 34.5 RDW 15.3 H Plt Count 217 Seg Neutrophils % Not Reportable Lymphocytes % Not Reportable Monocytes % Not Reportable Eosinophils % Not Reportable Basophils % Not Reportable Absolute Neutrophils Not Reportable Absolute Lymphocytes Not Reportable Absolute Monocytes Not Reportable Absolute Eosinophils Not Reportable Absolute Basophils Not Reportable Sodium 141.5 Potassium 4.6 Chloride 106 Carbon Dioxide 28 Anion Gap 8 BUN 33 H Creatinine 1.14 Est GFR ( Amer) 58 L Est GFR (Non-Af Amer) 48 L Glucose 106 Calcium 9.9 03/26/17 03/26/17 03/26/17 14:44 14:44 21:30 Creatine Kinase 121 134 CK-MB (CK-2) 1.74 Troponin I < 0.012 03/26/17 03/27/17 03/27/17 21:30 05:28 05:28 Creatine Kinase 118 CK-MB (CK-2) 2.10 1.84 Troponin I < 0.012 < 0.012 Impressions: Chest/Abdomen CTA 03/26/17 12:47 IMPRESSION: No CT angio evidence of acute pulmonary emboli. Bilateral lower lobe airspace disease atelectasis versus pneumonia No pleural effusions or pneumothorax Nonspecific mild mediastinal adenopathy Chest X-Ray 03/29/17 00:00 IMPRESSION: Focal airspace consolidation in the right lung base as noted above consistent with a pneumonic infiltrate. Remaining lung clarke are clear. Other findings as noted above Assessment & Plan - Diagnosis (1) COPD exacerbation Is this a current diagnosis for this admission?: Yes Plan: Slight improvement (2) Congestive heart failure Qualifiers: Congestive heart failure type: diastolic Is this a current diagnosis for this admission?: Yes (3) Hypoxia Is this a current diagnosis for this admission?: Yes (4) Pneumonia Qualifiers: Pneumonia type: due to unspecified organism Laterality: bilateral Lung location: lower lobe of lung Qualified Code(s): J18.9 - Pneumonia, unspecified organism Is this a current diagnosis for this admission?: Yes (5) Rheumatoid arthritis Qualifiers: Rheumatoid arthritis location: unspecified site Is this a current diagnosis for this admission?: Yes
[2017-04-01] MEDS: BENZONATATE 100 MG CAPSULE PO SCH ×3 (05:51→20:52)
[2017-04-01] MEDS: IPRATROPIUM/ALBUTEROL 0.5-2.5 MG/3 ML AMPUL NEB SCH ×4 (08:43→19:34)
[2017-04-01] MEDS: DOCUSATE SODIUM 100 MG CAPSULE PO SCH (10:26)
[2017-04-01] MEDS: CEFEPIME 1 GM/D5W RTU 1 GM/50 ML RTUPB IV SCH ×2 (10:26→21:01)
[2017-04-01] MEDS: AMLODIPINE BESYLATE 10 MG TABLET PO SCH (10:26)
[2017-04-01] MEDS: BENAZEPRIL HCL 10 MG TABLET PO SCH (10:26)
[2017-04-01] MEDS: CALCIUM CARBONATE 500 MG TABLET PO SCH (10:26)
[2017-04-01] MEDS: ATENOLOL 50 MG TABLET PO SCH (10:26)
[2017-04-01] MEDS: LEVOFLOXACIN 500 MG TABLET PO SCH (10:27)
[2017-04-01] MEDS: GUAIFENESIN 600 MG TABLET.SA PO SCH ×2 (10:27→20:52)
[2017-04-01] MEDS: ENOXAPARIN SODIUM INJ 40 MG/0.4 ML DISP.SYRIN SUBCUT SCH (10:27)
[2017-04-01] MEDS: PREDNISONE 20 MG TABLET PO SCH (10:27)
[2017-04-01] MEDS: FOLIC ACID 1 MG TABLET PO SCH (10:27)
[2017-04-01] MEDS: CHOLECALCIFEROL (D3) 1,000 UNIT TABLET PO SCH (10:27)
[2017-04-01] MEDS: HYDROCODONE BIT/HOMATROPINE 5-1.5 MG TABLET PO PRN (11:29)
--- NOTE | 2017-04-01 13:39 | PDOC PROGRESS REPORT ---
Subjective Progress Note for:: 04/01/17 Subjective:: She was seen by the bedside, still coughing and wheezing Physical Exam Vital Signs: Temp Pulse Resp BP Pulse Ox 97.4 F 77 12 107/76 96 04/01/17 12:05 04/01/17 12:05 04/01/17 12:05 04/01/17 12:05 04/01/17 12:05 Intake & Output 03/31/17 04/01/17 04/02/17 06:59 06:59 06:59 Intake Total 1969 2719 Balance 1969 2719 Weight 92.1 kg 92.3 kg General appearance: PRESENT: no acute distress Head exam: PRESENT: atraumatic, normocephalic Eye exam: PRESENT: conjunctiva pink, EOMI, PERRLA Ear exam: PRESENT: normal external ear exam Mouth exam: PRESENT: moist, tongue midline Neck exam: PRESENT: full ROM Respiratory exam: PRESENT: wheezes Cardiovascular exam: PRESENT: RRR, +S1, +S2 Vascular exam: PRESENT: normal capillary refill GI/Abdominal exam: PRESENT: normal bowel sounds, soft Rectal exam: PRESENT: deferred Neurological exam: PRESENT: alert, awake, oriented to person, oriented to place , oriented to time, oriented to situation, CN II-XII grossly intact. ABSENT: motor sensory deficit Psychiatric exam: PRESENT: appropriate affect, normal mood Skin exam: PRESENT: dry, intact, warm Results Laboratory Results: 03/30/17 06:01 03/30/17 06:01 03/26/17 03/26/17 03/26/17 14:44 14:44 21:30 Creatine Kinase 121 134 CK-MB (CK-2) 1.74 Troponin I < 0.012 03/26/17 03/27/17 03/27/17 21:30 05:28 05:28 Creatine Kinase 118 CK-MB (CK-2) 2.10 1.84 Troponin I < 0.012 < 0.012 Impressions: Chest/Abdomen CTA 03/26/17 12:47 IMPRESSION: No CT angio evidence of acute pulmonary emboli. Bilateral lower lobe airspace disease atelectasis versus pneumonia No pleural effusions or pneumothorax Nonspecific mild mediastinal adenopathy Chest X-Ray 03/29/17 00:00 IMPRESSION: Focal airspace consolidation in the right lung base as noted above consistent with a pneumonic infiltrate. Remaining lung clarke are clear. Other findings as noted above Assessment & Plan - Diagnosis (1) COPD exacerbation Is this a current diagnosis for this admission?: Yes (2) Pneumonia Qualifiers: Pneumonia type: due to unspecified organism Laterality: bilateral Lung location: lower lobe of lung Qualified Code(s): J18.9 - Pneumonia, unspecified organism Is this a current diagnosis for this admission?: Yes - Plan Summary Plan Summary: Continue present treatment
[2017-04-02] MEDS: BENZONATATE 100 MG CAPSULE PO SCH ×3 (06:21→21:12)
[2017-04-02] MEDS: IPRATROPIUM/ALBUTEROL 0.5-2.5 MG/3 ML AMPUL NEB SCH ×4 (08:46→19:57)
[2017-04-02] MEDS: ENOXAPARIN SODIUM INJ 40 MG/0.4 ML DISP.SYRIN SUBCUT SCH (09:46)
[2017-04-02] MEDS: GUAIFENESIN 600 MG TABLET.SA PO SCH ×2 (09:47→21:12)
[2017-04-02] MEDS: PREDNISONE 20 MG TABLET PO SCH (09:47)
[2017-04-02] MEDS: LEVOFLOXACIN 500 MG TABLET PO SCH (09:47)
[2017-04-02] MEDS: CALCIUM CARBONATE 500 MG TABLET PO SCH (09:47)
[2017-04-02] MEDS: CHOLECALCIFEROL (D3) 1,000 UNIT TABLET PO SCH (09:48)
[2017-04-02] MEDS: FOLIC ACID 1 MG TABLET PO SCH (09:49)
[2017-04-02] MEDS: DOCUSATE SODIUM 100 MG CAPSULE PO SCH (09:49)
[2017-04-02] MEDS: AMLODIPINE BESYLATE 10 MG TABLET PO SCH (09:49)
[2017-04-02] MEDS ORDERED: ACETAMINOPHEN 325 MG TABLET PO PRN (10:30)
--- NOTE | 2017-04-02 10:32 | RADIOLOGY REPORT (SQ) ---
EXAM DESCRIPTION: CHEST PA/LAT COMPLETED DATE/TIME: 04/02/2017 9:08 am REASON FOR STUDY: Pneumonia COMPARISON: 03/29/2017 EXAM PARAMETERS: NUMBER OF VIEWS: two views TECHNIQUE: Digital Frontal and Lateral radiographic views of the chest acquired. RADIATION DOSE: NA LIMITATIONS: none FINDINGS: LUNGS AND PLEURA: There is a somewhat linear area of opacification in the right base. MEDIASTINUM AND HILAR STRUCTURES: No masses or contour abnormalities. HEART AND VASCULAR STRUCTURES: Heart normal size. No evidence for failure. BONES: No acute findings. HARDWARE: Pacemaker/defibrillator. OTHER: No other significant finding. IMPRESSION: Right lower lobe consolidation versus subsegmental atelectasis. The appearance of the c hest is slightly improved on the lateral view. TECHNICAL DOCUMENTATION: JOB ID: [id number] [employer] All Rights Reserved
--- NOTE | 2017-04-02 11:18 | PDOC PROGRESS REPORT ---
Subjective Progress Note for:: 04/02/17 Subjective:: Patient is currently doing fair. Patient denied any chest pain without any shortness of the breathCough is much betterIs currently on 2 L nasal cannula Physical Exam Vital Signs: Temp Pulse Resp BP Pulse Ox 97.9 F 84 16 100/72 98 04/02/17 07:31 04/02/17 08:46 04/02/17 08:46 04/02/17 07:31 04/02/17 08:46 Intake & Output 04/01/17 04/02/17 04/03/17 06:59 06:59 06:59 Intake Total 2720 1955 Output Total 1020 Balance 2720 935 Weight 92.3 kg 92.3 kg General appearance: PRESENT: no acute distress, well-developed, well-nourished Head exam: PRESENT: atraumatic, normocephalic Eye exam: PRESENT: conjunctiva pink, EOMI, PERRLA. ABSENT: scleral icterus Ear exam: PRESENT: normal external ear exam Mouth exam: PRESENT: moist, tongue midline Neck exam: PRESENT: full ROM. ABSENT: carotid bruit, JVD, lymphadenopathy, thyromegaly Respiratory exam: PRESENT: clear to auscultation jany Cardiovascular exam: PRESENT: RRR. ABSENT: diastolic murmur, rubs, systolic murmur Pulses: PRESENT: normal dorsalis pedis pul, +2 pedal pulses bilateral Vascular exam: PRESENT: normal capillary refill GI/Abdominal exam: PRESENT: normal bowel sounds, soft. ABSENT: distended, guarding, mass, organolmegaly, rebound, tenderness Rectal exam: PRESENT: deferred Neurological exam: PRESENT: alert, awake, oriented to person, oriented to place , oriented to time, oriented to situation, CN II-XII grossly intact. ABSENT: motor sensory deficit Psychiatric exam: PRESENT: appropriate affect, normal mood. ABSENT: homicidal ideation, suicidal ideation Skin exam: PRESENT: dry, intact, warm. ABSENT: cyanosis, rash Results Laboratory Results: 03/30/17 06:01 03/30/17 06:01 03/26/17 03/26/17 03/26/17 14:44 14:44 21:30 Creatine Kinase 121 134 CK-MB (CK-2) 1.74 Troponin I < 0.012 03/26/17 03/27/17 03/27/17 21:30 05:28 05:28 Creatine Kinase 118 CK-MB (CK-2) 2.10 1.84 Troponin I < 0.012 < 0.012 Impressions: Chest/Abdomen CTA 03/26/17 12:47 IMPRESSION: No CT angio evidence of acute pulmonary emboli. Bilateral lower lobe airspace disease atelectasis versus pneumonia No pleural effusions or pneumothorax Nonspecific mild mediastinal adenopathy Chest X-Ray 04/02/17 00:00 IMPRESSION: Right lower lobe consolidation versus subsegmental atelectasis. The appearance of the chest is slightly improved on the lateral view. Assessment & Plan - Diagnosis (1) Acute respiratory distress Is this a current diagnosis for this admission?: Yes Plan: Currently all resolved (2) Pneumonia Qualifiers: Pneumonia type: due to unspecified organism Laterality: bilateral Lung location: lower lobe of lung Qualified Code(s): J18.9 - Pneumonia, unspecified organism Is this a current diagnosis for this admission?: Yes Plan: Stop the IV antibiotic continues to p.o. Levaquin (3) COPD exacerbation Is this a current diagnosis for this admission?: Yes Plan: Start the nebulizer treatment and IV steroid (4) Congestive heart failure Qualifiers: Congestive heart failure type: diastolic Is this a current diagnosis for this admission?: Yes Plan: Currently stable continues to current medication (5) Hypertension Qualifiers: Hypertension type: essential hypertension Qualified Code(s): I10 - Essential (primary) hypertension Is this a current diagnosis for this admission?: Yes Plan: Stable (6) Hypoxia Is this a current diagnosis for this admission?: Yes Plan: Try to wean her from the oxygen (7) Rheumatoid arthritis Qualifiers: Rheumatoid arthritis location: unspecified site Is this a current diagnosis for this admission?: Yes Plan: Currently hold the methotrexate - Time Time Spent with patient: 15-24 minutes Medications reviewed and adjusted accordingly: Yes Anticipated discharge: Home Within: within 24 hours - Inpatient Certification Medical Necessity: Need Close Monitoring Due to Risk of Patient Decompensation Post Hospital Care: D/C Set Decorator Documentation - Plan Summary Plan Summary: We will repeat the chest x-ray DC the IV antibiotic and the remained stable hopefully discharge the patient in the morningTry to wean off of the oxygens
[2017-04-02] MEDS: BENAZEPRIL HCL 10 MG TABLET PO SCH (11:39)
[2017-04-02] MEDS: ATENOLOL 50 MG TABLET PO SCH (11:39)
--- NOTE | 2017-04-02 14:20 | PDOC PROGRESS REPORT ---
Subjective Progress Note for:: 04/02/17 - Dyspnea Subjective:: Doing well without complaints Physical Exam Vital Signs: Temp Pulse Resp BP Pulse Ox 98.1 F 93 16 101/65 92 04/02/17 11:29 04/02/17 13:44 04/02/17 12:13 04/02/17 11:29 04/02/17 11:29 Intake & Output 04/01/17 04/02/17 04/03/17 06:59 06:59 06:59 Intake Total 2720 1955 Output Total 1020 Balance 2720 935 Weight 92.3 kg 92.3 kg General appearance: PRESENT: no acute distress, cooperative, disheveled, obese, well-developed Head exam: PRESENT: atraumatic, normocephalic Eye exam: PRESENT: conjunctiva pale, EOMI Mouth exam: PRESENT: moist, neck supple, tongue midline Neck exam: ABSENT: carotid bruit, JVD, lymphadenopathy, thyromegaly Respiratory exam: PRESENT: decreased breath sounds, prolonged expiratory phas, rhonchi, symmetrical, unlabored. ABSENT: accessory muscle use, chest wall tenderness, crackles, rales, retraction, stridor, tachypnea, wheezes Cardiovascular exam: PRESENT: RRR, +S1, +S2 Pulses: PRESENT: normal radial pulses GI/Abdominal exam: PRESENT: normal bowel sounds, soft. ABSENT: distended, guarding, mass, organolmegaly, rebound, tenderness Rectal exam: PRESENT: deferred Musculoskeletal exam: PRESENT: normal inspection Neurological exam: PRESENT: alert, awake Psychiatric exam: PRESENT: normal mood Skin exam: PRESENT: dry, warm Results Laboratory Results: 03/30/17 06:01 03/30/17 06:01 03/26/17 03/26/17 03/26/17 14:44 14:44 21:30 Creatine Kinase 121 134 CK-MB (CK-2) 1.74 Troponin I < 0.012 03/26/17 03/27/17 03/27/17 21:30 05:28 05:28 Creatine Kinase 118 CK-MB (CK-2) 2.10 1.84 Troponin I < 0.012 < 0.012 Impressions: Chest/Abdomen CTA 03/26/17 12:47 IMPRESSION: No CT angio evidence of acute pulmonary emboli. Bilateral lower lobe airspace disease atelectasis versus pneumonia No pleural effusions or pneumothorax Nonspecific mild mediastinal adenopathy Chest X-Ray 04/02/17 00:00 IMPRESSION: Right lower lobe consolidation versus subsegmental atelectasis. The appearance of the chest is slightly improved on the lateral view. Assessment & Plan - Diagnosis (1) COPD exacerbation Is this a current diagnosis for this admission?: Yes (2) Congestive heart failure Qualifiers: Congestive heart failure type: diastolic Is this a current diagnosis for this admission?: Yes (3) Hypoxia Is this a current diagnosis for this admission?: Yes (4) Pneumonia Qualifiers: Pneumonia type: due to unspecified organism Laterality: bilateral Lung location: lower lobe of lung Qualified Code(s): J18.9 - Pneumonia, unspecified organism Is this a current diagnosis for this admission?: No (5) Rheumatoid arthritis Qualifiers: Rheumatoid arthritis location: unspecified site Is this a current diagnosis for this admission?: Yes
[2017-04-03 04:50] LABS: ABSOLUTE BASOPHILS # (AUTO) 0.2 10^3/uL (0.0-0.2); ABSOLUTE EOSINOPHILS # (AUTO) 0.1 10^3/uL (0.0-0.6); ABSOLUTE LYMPHOCYTES (AUTO) 2.7 10^3/uL (0.5-4.7); ABSOLUTE MONOCYTES (AUTO) 1.9 10^3/uL (0.1-1.4); ABSOLUTE NEUT (AUTO) 10.7 10^3/uL (1.7-8.2); EOSINOPHILS % (AUTO) 0.6 % (0-6); HEMATOCRIT 36.2 % (36.0-47.0); HEMOGLOBIN 11.7 g/dL (12.0-15.5); HGB HCT DIFFERENCE -1.1; LYMPHOCYTES % (AUTO) 17.3 % (13-45); MEAN CORPUSCULAR HEMOGLOBIN 29.8 pg (27.0-33.4); MEAN CORPUSCULAR HGB CONC 32.4 g/dL (32.0-36.0); MONOCYTES % (AUTO) 12.4 % (3-13); RED BLOOD COUNT 3.94 10^6/uL (3.72-5.28); RED CELL DISTRIBUTION WIDTH 16.2 % (11.5-14.0); SEGMENTED NEUTROPHILS % (AUTO) 68.7 % (42-78); WHITE BLOOD COUNT 15.6 10^3/uL (4.0-10.5)
[2017-04-03 05:08] LABS: MEAN CORPUSCULAR VOLUME 92 fl (80-97)
[2017-04-03 05:09] LABS: ANION GAP 6 (5-19); BLOOD UREA NITROGEN 20 mg/dL (7-20); CALCIUM 9.9 mg/dL (8.4-10.2); CARBON DIOXIDE 32 mmol/L (22-30); CHLORIDE 106 mmol/L (98-107); CREATININE RESULT 0.98 mg/dL (0.52-1.25); GLUCOSE 80 mg/dL (75-110); POTASSIUM 4.4 mmol/L (3.6-5.0); SODIUM 144.2 mmol/L (137-145)
[2017-04-03] MEDS: BENZONATATE 100 MG CAPSULE PO SCH (06:09)
[2017-04-03] MEDS ORDERED: PREDNISONE 20 MG TABLET PO SCH (07:54)
--- NOTE | 2017-04-03 08:10 | PDOC PROGRESS REPORT ---
Subjective Progress Note for:: 04/03/17 Subjective:: She is currently doing well patient's denied any fever denied any chest pain denied any shortness of the breath. Patient still have a cough Physical Exam Vital Signs: Temp Pulse Resp BP Pulse Ox 97.9 F 89 18 122/80 93 04/03/17 04:00 04/03/17 07:00 04/03/17 04:00 04/03/17 04:00 04/03/17 04:00 Intake & Output 04/02/17 04/03/17 04/04/17 06:59 06:59 06:59 Intake Total 1954 1979 Output Total 1020 Balance 935 1979 Weight 92.3 kg 91.4 kg General appearance: PRESENT: no acute distress, well-developed, well-nourished Head exam: PRESENT: atraumatic, normocephalic Eye exam: PRESENT: conjunctiva pink, EOMI, PERRLA. ABSENT: scleral icterus Ear exam: PRESENT: normal external ear exam Mouth exam: PRESENT: moist, tongue midline Neck exam: PRESENT: full ROM. ABSENT: carotid bruit, JVD, lymphadenopathy, thyromegaly Respiratory exam: PRESENT: clear to auscultation jany Cardiovascular exam: PRESENT: RRR. ABSENT: diastolic murmur, rubs, systolic murmur Pulses: PRESENT: normal dorsalis pedis pul, +2 pedal pulses bilateral Vascular exam: PRESENT: normal capillary refill GI/Abdominal exam: PRESENT: normal bowel sounds, soft. ABSENT: distended, guarding, mass, organolmegaly, rebound, tenderness Rectal exam: PRESENT: deferred Extremities exam: ABSENT: pedal edema Musculoskeletal exam: PRESENT: ambulatory Neurological exam: PRESENT: alert, awake, oriented to person, oriented to place , oriented to time, oriented to situation, CN II-XII grossly intact. ABSENT: motor sensory deficit Psychiatric exam: PRESENT: appropriate affect, normal mood. ABSENT: homicidal ideation, suicidal ideation Skin exam: PRESENT: dry, intact, warm. ABSENT: cyanosis, rash Results Laboratory Results: 04/03/17 04:29 04/03/17 04:29 04/03/17 04/03/17 04:29 04:29 WBC 15.6 H RBC 3.94 Hgb 11.7 L Hct 36.2 MCV 92 D MCH 29.8 MCHC 32.4 RDW 16.2 H Plt Count 239 Seg Neutrophils % 68.7 Lymphocytes % 17.3 Monocytes % 12.4 Eosinophils % 0.6 Basophils % 1.0 Absolute Neutrophils 10.7 H Absolute Lymphocytes 2.7 Absolute Monocytes 1.9 H Absolute Eosinophils 0.1 Absolute Basophils 0.2 Sodium 144.2 Potassium 4.4 Chloride 106 Carbon Dioxide 32 H Anion Gap 6 BUN 20 Creatinine 0.98 Est GFR ( Amer) > 60 Est GFR (Non-Af Amer) 57 L Glucose 80 Calcium 9.9 03/26/17 03/26/17 03/26/17 14:44 14:44 21:30 Creatine Kinase 121 134 CK-MB (CK-2) 1.74 Troponin I < 0.012 03/26/17 03/27/17 03/27/17 21:30 05:28 05:28 Creatine Kinase 118 CK-MB (CK-2) 2.10 1.84 Troponin I < 0.012 < 0.012 Impressions: Chest/Abdomen CTA 03/26/17 12:47 IMPRESSION: No CT angio evidence of acute pulmonary emboli. Bilateral lower lobe airspace disease atelectasis versus pneumonia No pleural effusions or pneumothorax Nonspecific mild mediastinal adenopathy Chest X-Ray 04/02/17 00:00 IMPRESSION: Right lower lobe consolidation versus subsegmental atelectasis. The appearance of the chest is slightly improved on the lateral view. Assessment & Plan - Diagnosis (1) Acute respiratory distress Is this a current diagnosis for this admission?: Yes Plan: Currently all resolved (2) Pneumonia Qualifiers: Pneumonia type: due to unspecified organism Laterality: bilateral Lung location: lower lobe of lung Qualified Code(s): J18.9 - Pneumonia, unspecified organism Is this a current diagnosis for this admission?: No Plan: Test x-ray still persistent with a right-sided pneumonia but improving will start the patient on doxycycline (3) COPD exacerbation Is this a current diagnosis for this admission?: Yes Plan: Decrease the steroid (4) Congestive heart failure Qualifiers: Congestive heart failure type: diastolic Is this a current diagnosis for this admission?: Yes Plan: Currently stable continues to current medication (5) Hypertension Qualifiers: Hypertension type: essential hypertension Qualified Code(s): I10 - Essential (primary) hypertension Is this a current diagnosis for this admission?: Yes Plan: Stable (6) Hypoxia Is this a current diagnosis for this admission?: Yes Plan: Try to wean her from the oxygen (7) Rheumatoid arthritis Qualifiers: Rheumatoid arthritis location: unspecified site Is this a current diagnosis for this admission?: Yes Plan: Currently hold the methotrexate - Time Time Spent with patient: 15-24 minutes Medications reviewed and adjusted accordingly: Yes Anticipated discharge: Home Within: within 24 hours - Inpatient Certification Medical Necessity: Need Close Monitoring Due to Risk of Patient Decompensation Post Hospital Care: D/C Head Counselor Documentation - Plan Summary Plan Summary: Patient continues to have all medications
[2017-04-03] MEDS: IPRATROPIUM/ALBUTEROL 0.5-2.5 MG/3 ML AMPUL NEB SCH (08:50)
[2017-04-03 09:20] VITALS: BP 121/73
[2017-04-03] MEDS ORDERED: DOXYCYCLINE HYCLATE 100 MG TABLET PO SCH (10:00)
[2017-04-03] MEDS: ENOXAPARIN SODIUM INJ 40 MG/0.4 ML DISP.SYRIN SUBCUT SCH (10:13)
[2017-04-03] MEDS: GUAIFENESIN 600 MG TABLET.SA PO SCH (10:41)
[2017-04-03] MEDS: CHOLECALCIFEROL (D3) 1,000 UNIT TABLET PO SCH (10:42)
[2017-04-03] MEDS: AMLODIPINE BESYLATE 10 MG TABLET PO SCH (10:42)
[2017-04-03] MEDS: FOLIC ACID 1 MG TABLET PO SCH (10:42)
[2017-04-03] MEDS: ATENOLOL 50 MG TABLET PO SCH (10:42)
[2017-04-03] MEDS: DOCUSATE SODIUM 100 MG CAPSULE PO SCH (10:42)
[2017-04-03] MEDS: BENAZEPRIL HCL 10 MG TABLET PO SCH (10:43)
--- NOTE | 2017-04-03 12:31 | PDOC DISCHARGE SUMMARY ---
General - Admit/Disc Date/PCP Admission Date/Primary Care Provider: 03/26/17 14:26 LESLY HEDRICK MD Discharge Date: 04/03/17 - Discharge Diagnosis (1) Acute respiratory distress Is this a current diagnosis for this admission?: Yes Summary: Currently all resolved (2) Pneumonia Is this a current diagnosis for this admission?: No Summary: Continues to p.o. doxycycline for 10 days follow-up outpatients pulmonary (3) COPD exacerbation Is this a current diagnosis for this admission?: Yes Summary: Continues a nebulizer treatments following office in 1 week and up the patient' s finished the steroid will start the patient on Advair and the Spiriva (4) Congestive heart failure Is this a current diagnosis for this admission?: Yes Summary: Continues to current medications follow-up outpatients cardiology (5) Hypertension Is this a current diagnosis for this admission?: Yes Summary: Currently all stable (6) Hypoxia Is this a current diagnosis for this admission?: Yes Summary: Currently all resolved (7) Rheumatoid arthritis Is this a current diagnosis for this admission?: Yes Summary: This with the patient's currently hold the methotrexate's and Humira injections and follow with the hemstitching machine operator for further evaluations - Additional Information Resuscitation Status: Full Code Discharge Diet: Cardiac Discharge Activity: Activity As Tolerated, Balance Activity w/Rest Home Medications: Albuterol Sulfate [Ventolin Hfa] 2 puff IH Q4 PRN 03/26/17 Amlodipine Besylate/Benazepril [Amlodipine-Benazepril 5-10 mg] 1 cap PO Q12 Atenolol [Tenormin 50 mg Tablet] 50 mg PO DAILY 03/26/17 Calcium Carbonate [Calcium] 600 mg PO DAILY 03/26/17 Cholecalciferol (Vitamin D3) [Vitamin D3] 2,000 unit PO DAILY 03/26/17 Folic Acid [Folvite 1 mg Tablet] 1 mg PO DAILY 03/26/17 Benzonatate [Tessalon Perles 100 mg Capsule] 100 mg PO Q8 #21 capsule 04/03/17 Doxycycline Hyclate [Vibramycin 100 mg Tablet] 100 mg PO Q12 #20 tablet Guaifenesin [Mucinex Sr 600 mg Tablet.sa] 600 mg PO Q12 #20 tablet.sa 04/03/17 Ipratropium/Albuterol Sulfate [Duoneb 3 ml Ampul] 3 ml NEB RTQ4HP PRN #120 vial.neb 04/03/17 Nebulizer [Nebulizer Machine] 1 each MC ASDIR PRN #1 kit 04/03/17 Prednisone [Deltasone 20 mg Tablet] 10 mg PO DAILY #5 tablet 04/03/17 History of Present Illness History of Present Illness: INA ELMORE is a 66 year old female Is a 66-year-old female with a history of the COPD and a history of the congestive heart failure and a history of the rheumatoid arthritis and a chronic back problemsCurrently taking the Humira and methotrexate per hemstitching machine operator was complaining some cough cold and congestion since last couple of weeks and feeling short of breath. According to the family and the patient she also noticed some greenish yellowish sputum discharge since last 1 week and started running a feverIn the emergency department patient oxygen saturation is only 82% and patient immediately put on oxygen and the put on the BiPAP and when I saw the patient in the ER patient is currently comfortably lying in the bed with the BiPAP and denied any chest pain denied any shortness of the breathPatient was also given the steroid and the nebulizer treatment. Physicians Patient have a CT angiogram was done for negative for PE Patient also see a Dr. shi as outpatient and recent heart work is all stable Patient CT chest so some possible pneumonia versus atelectasis patient given the broad-spectrum IV antibiotic for the IMCU and discussed with the and the bedside regarding the patient's current conditions Hospital Course Hospital Course: This 66-year-old female with a significant history of the smoking and COPD and a history of the rheumatoid arthritis and currently on methotrexate and Humira injections came to the emergency department with the complaining of shortness of the breath and found the pneumonia and hypoxia and admitting in the hospital for further evaluation and treatment Patient initial CT angiogram was negative for any PE and the patient's cardiac workup is all negative Patient initially put on a BiPAP start the patient on IV antibiotic and nebulizer treatment and IV steroid and Dr. Underwood was consulted Patient's response very well with IV antibiotic and switch to the p.o. antibiotic Also on IV steroid to switch to the p.o. steroid Patients remain afebrile patients does not require any oxygen in patients walk in the hallway without any problems Since chest x-ray is also improving patient's white count is still mildly elevated possible from steroid versus pneumonia Patient at this point maximum benefit for the hospital and currently hemodynamically stable and patient's very express desire to go home today and patient's discharge home with the p.o. antibiotic and nebulizer treatment and tapering dose of the steroid Discussed with the patient on increasing any short of breath any fever come to the ER Patient's follow with Dr. Underwood as outpatient Currently hold the patient's methotrexate and reevaluate by hemstitching machine operator to possible any side effect from the lung Physical Exam Vital Signs: Temp Pulse Resp BP Pulse Ox 97.7 F 93 16 121/73 98 04/03/17 09:16 04/03/17 09:16 04/03/17 09:16 04/03/17 09:16 04/03/17 09:16 Intake & Output 04/02/17 04/03/17 04/04/17 06:59 06:59 06:59 Intake Total 1955 1979 Output Total 1020 Balance 935 1979 Weight 92.3 kg 91.4 kg General appearance: PRESENT: no acute distress, well-developed, well-nourished Head exam: PRESENT: atraumatic, normocephalic Eye exam: PRESENT: conjunctiva pink, EOMI, PERRLA. ABSENT: scleral icterus Ear exam: PRESENT: normal external ear exam Mouth exam: PRESENT: moist, tongue midline Neck exam: PRESENT: full ROM. ABSENT: carotid bruit, JVD, lymphadenopathy, thyromegaly Respiratory exam: PRESENT: clear to auscultation jany Cardiovascular exam: PRESENT: RRR. ABSENT: diastolic murmur, rubs, systolic murmur Pulses: PRESENT: normal dorsalis pedis pul, +2 pedal pulses bilateral Vascular exam: PRESENT: normal capillary refill GI/Abdominal exam: PRESENT: normal bowel sounds, soft. ABSENT: distended, guarding, mass, organolmegaly, rebound, tenderness Rectal exam: PRESENT: deferred Extremities exam: ABSENT: full ROM, left AKA, right AKA, left BKA, right BKA, calf tenderness, joint swelling, pedal edema, tenderness, other Musculoskeletal exam: PRESENT: ambulatory Neurological exam: PRESENT: alert, awake, oriented to person, oriented to place , oriented to time, oriented to situation, CN II-XII grossly intact. ABSENT: motor sensory deficit Psychiatric exam: PRESENT: appropriate affect, normal mood. ABSENT: homicidal ideation, suicidal ideation Skin exam: PRESENT: dry, intact, warm. ABSENT: cyanosis, rash Results Laboratory Results: 04/03/17 04:29 04/03/17 04:29 04/03/17 04/03/17 04:29 04:29 WBC 15.6 H RBC 3.94 Hgb 11.7 L Hct 36.2 MCV 92 D MCH 29.8 MCHC 32.4 RDW 16.2 H Plt Count 239 Seg Neutrophils % 68.7 Lymphocytes % 17.3 Monocytes % 12.4 Eosinophils % 0.6 Basophils % 1.0 Absolute Neutrophils 10.7 H Absolute Lymphocytes 2.7 Absolute Monocytes 1.9 H Absolute Eosinophils 0.1 Absolute Basophils 0.2 Sodium 144.2 Potassium 4.4 Chloride 106 Carbon Dioxide 32 H Anion Gap 6 BUN 20 Creatinine 0.98 Est GFR ( Amer) > 60 Est GFR (Non-Af Amer) 57 L Glucose 80 Calcium 9.9 03/26/17 03/26/17 03/26/17 14:44 14:44 21:30 Creatine Kinase 121 134 CK-MB (CK-2) 1.74 Troponin I < 0.012 03/26/17 03/27/17 03/27/17 21:30 05:28 05:28 Creatine Kinase 118 CK-MB (CK-2) 2.10 1.84 Troponin I < 0.012 < 0.012 Impressions: Chest/Abdomen CTA 03/26/17 12:47 IMPRESSION: No CT angio evidence of acute pulmonary emboli. Bilateral lower lobe airspace disease atelectasis versus pneumonia No pleural effusions or pneumothorax Nonspecific mild mediastinal adenopathy Chest X-Ray 04/02/17 00:00 IMPRESSION: Right lower lobe consolidation versus subsegmental atelectasis. The appearance of the chest is slightly improved on the lateral view. Plan Time Spent: Greater than 30 Minutes - Following office in 1 week we will start the patient on Advair and Spiriva and recheck the CBC and Chem-7 We will repeat the chest x-ray after finished antibiotic Follow with the Dr. Underwood Follow with the hemstitching machine operator Discussed with the son about patient's current conditions
[2017-04-03] MEDS ORDERED: CALCIUM CARBONATE 500 MG TABLET PO SCH (14:00)
--- NOTE | 2017-04-03 14:59 | PDOC PROGRESS REPORT ---
Subjective Progress Note for:: 04/03/17 - Dyspnea Subjective:: Doing well without complaints Physical Exam Vital Signs: Temp Pulse Resp BP Pulse Ox 97.7 F 93 16 121/73 98 04/03/17 09:16 04/03/17 09:16 04/03/17 09:16 04/03/17 09:16 04/03/17 09:16 Intake & Output 04/02/17 04/03/17 04/04/17 06:59 06:59 06:59 Intake Total 1954 1979 Output Total 1020 Balance 935 1979 Weight 92.3 kg 91.4 kg General appearance: PRESENT: no acute distress, cooperative, disheveled, obese, well-developed Head exam: PRESENT: atraumatic, normocephalic Eye exam: PRESENT: conjunctiva pale, EOMI Mouth exam: PRESENT: dry mucosa, neck supple, tongue midline Neck exam: ABSENT: carotid bruit, JVD, lymphadenopathy, thyromegaly Respiratory exam: PRESENT: decreased breath sounds, prolonged expiratory phas, rhonchi, symmetrical, unlabored. ABSENT: accessory muscle use, chest wall tenderness, clear to auscultation jany, crackles, rales, retraction, stridor, tachypnea Cardiovascular exam: PRESENT: RRR, +S1, +S2 Pulses: PRESENT: normal radial pulses GI/Abdominal exam: PRESENT: normal bowel sounds, soft. ABSENT: distended, guarding, mass, organolmegaly, rebound, tenderness Extremities exam: PRESENT: full ROM Musculoskeletal exam: PRESENT: normal inspection Neurological exam: PRESENT: alert, awake Psychiatric exam: PRESENT: normal mood Skin exam: PRESENT: dry, warm Results Laboratory Results: 04/03/17 04:29 04/03/17 04:29 04/03/17 04/03/17 04:29 04:29 WBC 15.6 H RBC 3.94 Hgb 11.7 L Hct 36.2 MCV 92 D MCH 29.8 MCHC 32.4 RDW 16.2 H Plt Count 239 Seg Neutrophils % 68.7 Lymphocytes % 17.3 Monocytes % 12.4 Eosinophils % 0.6 Basophils % 1.0 Absolute Neutrophils 10.7 H Absolute Lymphocytes 2.7 Absolute Monocytes 1.9 H Absolute Eosinophils 0.1 Absolute Basophils 0.2 Sodium 144.2 Potassium 4.4 Chloride 106 Carbon Dioxide 32 H Anion Gap 6 BUN 20 Creatinine 0.98 Est GFR ( Amer) > 60 Est GFR (Non-Af Amer) 57 L Glucose 80 Calcium 9.9 03/26/17 03/26/17 03/26/17 14:44 14:44 21:30 Creatine Kinase 121 134 CK-MB (CK-2) 1.74 Troponin I < 0.012 03/26/17 03/27/17 03/27/17 21:30 05:28 05:28 Creatine Kinase 118 CK-MB (CK-2) 2.10 1.84 Troponin I < 0.012 < 0.012 Impressions: Chest/Abdomen CTA 03/26/17 12:47 IMPRESSION: No CT angio evidence of acute pulmonary emboli. Bilateral lower lobe airspace disease atelectasis versus pneumonia No pleural effusions or pneumothorax Nonspecific mild mediastinal adenopathy Chest X-Ray 04/02/17 00:00 IMPRESSION: Right lower lobe consolidation versus subsegmental atelectasis. The appearance of the chest is slightly improved on the lateral view. Assessment & Plan - Diagnosis (1) COPD exacerbation Is this a current diagnosis for this admission?: Yes Plan: Slight improvement (2) Congestive heart failure Qualifiers: Congestive heart failure type: diastolic Is this a current diagnosis for this admission?: Yes (3) Hypoxia Is this a current diagnosis for this admission?: Yes Plan: Continue supplemental oxygen (4) Pneumonia Qualifiers: Pneumonia type: due to unspecified organism Laterality: bilateral Lung location: lower lobe of lung Qualified Code(s): J18.9 - Pneumonia, unspecified organism Is this a current diagnosis for this admission?: No (5) Rheumatoid arthritis Qualifiers: Rheumatoid arthritis location: unspecified site Is this a current diagnosis for this admission?: Yes Plan: Hopefully current therapy can be changed to something less toxic systemically
== END 2017-04-03 11:23 | disposition home or self-care (01) | DRG 194 ==
LOC: ER 10:47 → UNDOADMIN 13:55 → EH 13:55 → ICU 17:47 → 5 03-29 21:04
PROVIDERS: ADMIT Family Medicine; ATTEND Family Medicine
DX: J18.9 Pneumonia, unspecified organism (principal); J44.1 Chronic obstructive pulmonary disease with (acute) exacerbation; I50.32 Chronic diastolic (congestive) heart failure; R06.03 Acute respiratory distress; I11.0 Hypertensive heart disease with heart failure; R09.02 Hypoxemia; M06.9 Rheumatoid arthritis, unspecified; F17.210 Nicotine dependence, cigarettes, uncomplicated; Z79.899 Other long term (current) drug therapy; Z79.51 Long term (current) use of inhaled steroids
CPT/HCPCS: 36415; 71010; 71020; 71275; 80048; 80053; 81001; 82550; 82553; 82803; 83605; 83690; 83735; 83880; 84484; 85025; 87040; 87070; 87086; 87205; 93005; 93010; 94640; 94660; 94667; 94668; 94799; 96360; 99291; G8978-GP; G8979-GP; J0692; J1650; J1956; J2930; J3490; J7040; J7512; J7620

== ENCOUNTER → 2017-04-13 | Outpatient (CLI) | payer MEDICARE, MEDICAID ==
--- NOTE | 2017-04-13 13:04 | RADIOLOGY REPORT (SQ) ---
EXAM DESCRIPTION: CHEST PA/LATERAL COMPLETED DATE/TIME: 04/13/2017 12:50 pm REASON FOR STUDY: COPD,PNEUMONIA, UNSPECIFIED ORGANISM COMPARISON: 04/02/2017 and 03/29/2017 EXAM PARAMETERS: NUMBER OF VIEWS: two views TECHNIQUE: Digital Frontal and Lateral radiographic views of the chest acquired. RADIATION DOSE: NA LIMITATIONS: none FINDINGS: LUNGS AND PLEURA: Improved aeration right lower lobe without new opacities, masses or pneu mothorax. No pleural effusion. MEDIASTINUM AND HILAR STRUCTURES: No masses or contour abnormalities. HEART AND VASCULAR STRUCTURES: Heart stable in size. No evidence for failure. BONES: No acute findings. HARDWARE: Stable. OTHER: No other significant finding. IMPRESSION: NO SIGNIFICANT RADIOGRAPHIC FINDING IN THE CHEST. IMPROVED AERATION RIGHT LOWER LOBE. TECHNICAL DOCUMENTATION: JOB ID: [id number] [employer]- All Rights Reserved
== END ==
LOC: OD 12:35
PROVIDERS: ATTEND Family Medicine
DX: J44.9 Chronic obstructive pulmonary disease, unspecified (principal); J18.9 Pneumonia, unspecified organism
CPT/HCPCS: 71020

== ENCOUNTER 2017-06-30 13:45 | Emergency (ER) | payer MEDICARE, MEDICAID ==
[2017-06-30] MEDS ORDERED: MORPHINE SULFATE 10 MG/ML INJ IV ONE (14:53)
--- NOTE | 2017-06-30 14:54 | ER Document Report ---
ED General - General Chief Complaint: Abdominal Pain Stated Complaint: STOMACH PAIN Time Seen by Provider: 06/30/17 14:49 Mode of Arrival: Ambulatory Information source: Patient Notes: 67 yr old female presents with left lower quadrant abdominal pain and bright red blood per rectum. She denies any fevers or chills denies any nausea vomiting or diarrhea. Patient notes she has a history of diverticulosis but has never had diverticulitis before. She denies any vaginal complaints denies any urinary complaints TRAVEL OUTSIDE OF THE [place] IN LAST 30 DAYS: No - HPI Onset: Just prior to arrival Onset/Duration: Sudden Quality of pain: Sharp Severity: Mild Pain Level: 1 Associated symptoms: Other Exacerbated by: Denies Relieved by: Denies Similar symptoms previously: No Recently seen / treated by doctor: No - Related Data Allergies/Adverse Reactions: atorvastatin calcium [From Lipitor] Allergy (Severe, Verified 06/30/17 13:46) paralysis lisinopril Allergy (Verified 06/30/17 13:46) Past Medical History - Social History Smoking Status: Never Smoker Cigarette use (# per day): No Chew tobacco use (# tins/day): No Smoking Education Provided: No Frequency of alcohol use: None Drug Abuse: None Family History: Reviewed & Not Pertinent Patient has suicidal ideation: No Patient has homicidal ideation: No - Past Medical History Cardiac Medical History: Reports: Hx Hypertension Denies: Hx Coronary Artery Disease, Hx Heart Attack Pulmonary Medical History: Reports: Hx Bronchitis, Hx COPD Denies: Hx Asthma, Hx Pneumonia Neurological Medical History: Denies: Hx Cerebrovascular Accident, Hx Seizures Renal/ Medical History: Denies: Hx Peritoneal Dialysis GI Medical History: Reports: Hx Gastroesophageal Reflux Disease Musculoskeltal Medical History: Reports Hx Arthritis Past Surgical History: Denies: Hx Hysterectomy - Immunizations Hx Diphtheria, Pertussis, Tetanus Vaccination: No Review of Systems - Review of Systems Notes: REVIEW OF SYSTEMS: CONSTITUTIONAL : Denies fever, chills, or sweats. Denies recent illness. EENT: Denies eye, ear, throat, or mouth pain or symptoms. Denies nasal or sinus congestion or discharge. Denies throat, tongue, or mouth swelling or difficulty swallowing. CARDIOVASCULAR: Denies chest pain. Denies palpitations or racing or irregular heart beat. Denies ankle edema. RESPIRATORY: Denies cough, cold, or chest congestion. Denies shortness of breath, difficulty breathing, or wheezing. GASTROINTESTINAL: admits to LLQ pain ,blood per rectum GENITOURINARY: Denies difficulty urinating, painful urination, burning, frequency, blood in urine, or discharge. FEMALE GENITOURINARY: Denies vaginal bleeding, heavy or abnormal periods, irregular periods. Denies vaginal discharge or odor. MUSCULOSKELETAL: Denies back or neck pain or stiffness. Denies joint pain or swelling. SKIN: Denies rash, lesions or sores. HEMATOLOGIC : Denies easy bruising or bleeding. LYMPHATIC: Denies swollen, enlarged glands. NEUROLOGICAL: Denies confusion or altered mental status. Denies passing out or loss of consciousness. Denies dizziness or lightheadedness. Denies headache. Denies weakness or paralysis or loss of use of either side. Denies problems with gait or speech. Denies sensory loss, numbness, or tingling. Denies seizures. PSYCHIATRIC: Denies anxiety or stress. Denies depression, suicidal ideation, or homicidal ideation. ALL OTHER SYSTEMS REVIEWED AND NEGATIVE. PHYSICAL EXAMINATION: GENERAL: Well-appearing, well-nourished and in no acute distress. HEAD: Atraumatic, normocephalic. EYES: Pupils equal round and reactive to light, extraocular movements intact, conjunctiva are normal. ENT: Nares patent, oropharynx clear without exudates. Moist mucous membranes. NECK: Normal range of motion, supple without lymphadenopathy LUNGS: Breath sounds clear to auscultation bilaterally and equal. No wheezes rales or rhonchi. HEART: Regular rate and rhythm without murmurs ABDOMEN: Soft, minimally tenedr in the llq no rebound or guarding Female : deferred Musculoskeletal: Normal range of motion, no pitting or edema. No cyanosis. NEUROLOGICAL: Cranial nerves grossly intact. Normal speech, normal gait. Normal sensory, motor exams PSYCH: Normal mood, normal affect. SKIN: Warm, Dry, normal turgor, no rashes or lesions noted. Dictation was performed using [employer] voice recognition software Physical Exam - Vital signs Vitals: Temp Pulse Resp BP Pulse Ox 98.7 F 107 H 18 134/90 H 94 06/30/17 13:53 06/30/17 13:53 06/30/17 13:53 06/30/17 13:53 06/30/17 13:53 Course - Re-evaluation Re-evalutation: 06/30/17 17:12 pt presentation is consistent with diverticulitis, no sign of perforation, no distention ct consistnat with diverticulits, wbc count is 17, afebrile, well appearing, will treat with antibotics 06/30/17 18:47 Patient was very happy with this plan wishes to be discharged is able to ambulate eat and drink with no difficulty After performing a Medical Screening Examination, I estimate there is LOW risk for ACUTE APPENDICITIS, BOWEL OBSTRUCTION, ACUTE CHOLECYSTITIS, PERFORATED DIVERTICULITIS, INCARCERATED HERNIA, PANCREATITIS, PELVIC INFLAMMATORY DISEASE, PERFORATED ULCER, ECTOPIC , or TUBO-OVARIAN ABSCESS, thus I consider the discharge disposition reasonable. Also, there is no evidence or peritonitis , sepsis, or toxicity. I have reevaluated this patient multiple times and no significant life threatening changes are noted. The patient and I have discussed the diagnosis and risks, and we agree with discharging home with close follow-up with the understanding that symptoms and presentations can change. We also discussed returning to the Emergency Department immediately if new or worsening symptoms occur. We have discussed the symptoms which are most concerning (e.g., bloody stool, fever, changing or worsening pain, vomiting) that necessitate immediate return. - Vital Signs Vital signs: Temp Pulse Resp BP Pulse Ox 98.0 F 96 18 102/66 95 06/30/17 17:26 06/30/17 17:26 06/30/17 17:26 06/30/17 17:26 06/30/17 17:26 - Laboratory Result Diagrams: 06/30/17 15:00 06/30/17 15:58 Laboratory results interpreted by me: 06/30/17 06/30/17 06/30/17 15:00 15:00 15:58 WBC 17.0 H RBC 5.34 H RDW 14.5 H Absolute Neutrophils 13.0 H Est GFR (Non-Af Amer) 53 L Glucose 120 H Calcium 10.7 H Urine Blood SMALL H Ur Leukocyte Esterase TRACE H - Diagnostic Test Radiology reviewed: Image reviewed, Reports reviewed - diverticulitis Discharge - Discharge Clinical Impression: Diverticulitis Abdominal pain Qualifiers: Abdominal location: left lower quadrant Qualified Code(s): R10.32 - Left lower quadrant pain Condition: Stable Disposition: HOME, SELF-CARE Instructions: Diverticulitis (OM) Prescriptions: Ciprofloxacin HCl [Cipro 500 mg Tablet] 500 mg PO BID #20 tablet Metronidazole [Flagyl 500 mg Tablet] 500 mg PO Q8 #30 tablet Referrals: MARK DUNCAN MD [ACTIVE STAFF] - Follow up tomorrow
[2017-06-30 15:34] LABS: ABSOLUTE BASOPHILS # (AUTO) 0.2 10^3/uL (0.0-0.2); ABSOLUTE EOSINOPHILS # (AUTO) 0.1 10^3/uL (0.0-0.6); ABSOLUTE LYMPHOCYTES (AUTO) 2.2 10^3/uL (0.5-4.7); ABSOLUTE MONOCYTES (AUTO) 1.4 10^3/uL (0.1-1.4); BASOPHILS % (AUTO) 1.1 % (0-2); EOSINOPHILS % (AUTO) 0.9 % (0-6); HEMATOCRIT 46.2 % (36.0-47.0); HEMOGLOBIN 14.8 g/dL (12.0-15.5); LYMPHOCYTES % (AUTO) 13.2 % (13-45); MEAN CORPUSCULAR HEMOGLOBIN 27.7 pg (27.0-33.4); MEAN CORPUSCULAR HGB CONC 32.1 g/dL (32.0-36.0); MEAN CORPUSCULAR VOLUME 86 fl (80-97); MONOCYTES % (AUTO) 8.4 % (3-13); PLATELET COUNT 263 10^3/uL (150-450); RED BLOOD COUNT 5.34 10^6/uL (3.72-5.28); RED CELL DISTRIBUTION WIDTH 14.5 % (11.5-14.0); SEGMENTED NEUTROPHILS % (AUTO) 76.4 % (42-78); TOTAL CELLS COUNTED % (AUTO) 100 %
[2017-06-30 16:27] LABS: ALANINE AMINOTRANSFERASE 22 U/L (9-52); ALBUMIN 3.8 g/dL (3.5-5.0); ALKALINE PHOSPHATASE 122 U/L (38-126); ANION GAP 8 (5-19); ASPARTATE AMINO TRANSFERASE 16 U/L (14-36); BILIRUBIN,DIRECT 0.2 mg/dL (0.0-0.4); BILIRUBIN,TOTAL 0.4 mg/dL (0.2-1.3); BLOOD UREA NITROGEN 11 mg/dL (7-20); CALCIUM 10.7 mg/dL (8.4-10.2); CARBON DIOXIDE 29 mmol/L (22-30); CHLORIDE 104 mmol/L (98-107); GLUCOSE 120 mg/dL (75-110); LIPASE 94.8 U/L (23-300); POTASSIUM 3.8 mmol/L (3.6-5.0); SODIUM 141.1 mmol/L (137-145); TOTAL PROTEIN 6.8 g/dL (6.3-8.2)
--- NOTE | 2017-06-30 17:01 | RADIOLOGY REPORT (SQ) ---
EXAM DESCRIPTION: CT ABD/PELVIS WITH IV ONLY COMPLETED DATE/TIME: 06/30/2017 4:49 pm REASON FOR STUDY: LLQ pain, hx of diverticulosis COMPARISON: None. TECHNIQUE: CT scan of the abdomen and pelvis performed using helical scanning technique with dynamic intravenous contrast injection. No oral contrast. Images reviewed with lung, soft tissue, and bone windows. Reconstructed coronal and sagittal MPR images reviewed. Delayed images for evaluation of the urinary system also acquired. All images stored on PACS. All CT scanners at this facility use dose modulation, iterative reconstruction, and/or weight based d osing when appropriate to reduce radiation dose to as low as reasonably achievable (ALARA). [facility]: Dose Right [facility]: CareDose [facility]: Dose Right [facility]: Teradose 4D [facility]: [employer] CONTRAST TYPE AND DOSE: contrast/concentration: Isovue 370.00 mg/ml; Total Contrast Delivered: 89.0 ml; Total Saline Delivered: 70.0 ml RENAL FUNCTION: BUN 11; creatinine 1.03 RADIATION DOSE: CT Rad equipment meets quality standard of care and radiation dose reduction techniq ues were employed. CTDIvol: NaN - NaN mGy. DLP: 0 mGy-cm.. LIMITATIONS: None. FINDINGS: LOWER CHEST: No significant findings. No nodules or infiltrates. LIVER: Normal size. No masses. No dilated ducts. Probable tiny hepatic cysts, right lobe. SPLEEN: Normal size. No focal lesions. PANCREAS: No masses. No significant calcifications. No adjacent inflammation or peripancreatic fluid collections. Pancreatic duct not dilated. GALLBLADDER: No identified stones by CT criteria. No inflammatory changes to suggest cholecystitis. ADRENAL GLANDS: No significant masses or asymmetry. RIGHT KIDNEY AND URETER: No solid masses. No significant calcifications. No hydronephrosis or hyd roureter. LEFT KIDNEY AND URETER: No solid masses. 1.6 cm simple cyst. No significant calcifications. No h ydronephrosis or hydroureter. AORTA AND VESSELS: No aneurysm. No dissection. Renal arteries, SMA, celiac without stenosis. RETROPERITONEUM: No retroperitoneal adenopathy, hemorrhage or masses. BOWEL AND PERITONEAL CAVITY: Diverticulosis with focal inflammatory changes involving the descending colon. No focal fluid collection or pneumoperitoneum. APPENDIX: Normal. PELVIS: No mass. No free fluid. Normal bladder. ABDOMINAL WALL: No masses. No hernias. BONES: Degenerative changes of the hips and spine. OTHER: No other significant finding. IMPRESSION: Uncomplicated diverticulitis. TECHNICAL DOCUMENTATION: JOB ID: [id number] Quality ID # [id number]: Final reports with documentation of one or more dose reduction techniques (e.g., Au tomated exposure control, adjustment of the mA and/or kV according to patient size, use of iterative reconstruction technique) 2010 [employer]- All Rights Reserved
[2017-06-30 17:23] LABS: APPEARANCE,URINE SLIGHTLY-CLOUDY; BILIRUBIN,URINE NEGATIVE (NEGATIVE); COLOR,URINE YELLOW; GLUCOSE, URINE NEGATIVE (NEGATIVE); KETONES,URINE NEGATIVE (NEGATIVE); LEUKOCYTE ESTERASE,URINE TRACE (NEGATIVE); NITRITE,URINE NEGATIVE (NEGATIVE); PROTEIN,URINE NEGATIVE (NEGATIVE); URINE SPECIFIC GRAVITY 1.017; UROBILINOGEN,URINE NEGATIVE mg/dL (<2.0)
[2017-06-30 17:39] VITALS: BP 102/66
== END 2017-06-30 17:30 | disposition home or self-care (01) ==
LOC: ER 13:45
DX: K57.32 Diverticulitis of large intestine without perforation or abscess without bleeding (principal); R10.32 Left lower quadrant pain; K62.5 Hemorrhage of anus and rectum; Z88.8 Allergy status to other drugs, medicaments and biological substances; I10 Essential (primary) hypertension; J44.9 Chronic obstructive pulmonary disease, unspecified
CPT/HCPCS: 99284; 96372; 36415; 83690; 85025; 80053; 81001; 74177; J2270

== ENCOUNTER → 2017-09-05 | Day surgery (SDC) | payer MEDICARE, MEDICAID ==
[~2017-09-05] MED LIST: BUPIVACAINE HCL 0.5 % INJ/PF 30 ML SDV ONE; METHYLPREDNISOLONE ACETATE INJ 40 MG/1 ML ML ONE
--- NOTE | 2017-09-05 14:35 | RADIOLOGY REPORT (SQ) ---
EXAM DESCRIPTION: INJECT/ASPIR HIP/SHLDR/KNEE; FLUORO/NEEDLE PLACEMENT COMPLETED DATE/TIME: 09/05/2017 1:42 pm REASON FOR STUDY: OA L HIP (M16.12) M16.12 UNILATERAL PRIMARY OSTEOARTHRITIS, LEFT HIP COMPARISON: CT abdomen pelvis 06/30/2017 Left hip films 04/26/[address] arthrogram 01/25/2011 FLUOROSCOPY TIME: 14 seconds 2 digital radiographic images saved to PACS. LIMITATIONS: None. PROCEDURE: SITE OF INJECTION: Left hip LOCALIZING CONTRAST TYPE AND DOSE: 1 mL of Isovue 300 MEDICATION TYPE AND DOSE: 80 mg of Depo-Medrol, 6 mL of 0.5% bupivacaine Using local anesthesia and sterile technique with fluoroscopic guidance, a 22 gauge spinal needle was advanced into the joint. Iodinated contrast was injected to verify intraarticular placement. This w as followed by therapeutic injection of the indicated medications. The needle was removed. There we re no immediate complications. Preprocedure pain level: 6/10. Postprocedure pain level: 2/10. There is a benign sclerotic lesion in the left proximal femoral metaphysis which is unchanged from st udies dating back to 2009. IMPRESSION: THERAPEUTIC INJECTION OF THE LEFT HIP JOINT ABOVE. COMMENT: Patient medication list reviewed: Yes- Quality ID# [id number]:Eligible professional attests to doc umenting in the medical record they obtained, updated, or reviewed the patient's current medications. . Quality ID 145: Final reports for procedures using fluoroscopy that document radiation exposure bharti abdias, or exposure time and number of fluorographic images (if radiation exposure indices are not avail able) TECHNICAL DOCUMENTATION: JOB ID: [id number] [employer]- All Rights Reserved Reading location - IP/workstation name: [facility]
--- NOTE | 2017-09-05 14:35 | RADIOLOGY REPORT (SQ) ---
EXAM DESCRIPTION: INJECT/ASPIR HIP/SHLDR/KNEE; FLUORO/NEEDLE PLACEMENT COMPLETED DATE/TIME: 09/05/2017 1:42 pm REASON FOR STUDY: OA L HIP (M16.12) M16.12 UNILATERAL PRIMARY OSTEOARTHRITIS, LEFT HIP COMPARISON: CT abdomen pelvis 06/30/2017 Left hip films 04/26/[address] arthrogram 01/25/2011 FLUOROSCOPY TIME: 14 seconds 2 digital radiographic images saved to PACS. LIMITATIONS: None. PROCEDURE: SITE OF INJECTION: Left hip LOCALIZING CONTRAST TYPE AND DOSE: 1 mL of Isovue 300 MEDICATION TYPE AND DOSE: 80 mg of Depo-Medrol, 6 mL of 0.5% bupivacaine Using local anesthesia and sterile technique with fluoroscopic guidance, a 22 gauge spinal needle was advanced into the joint. Iodinated contrast was injected to verify intraarticular placement. This w as followed by therapeutic injection of the indicated medications. The needle was removed. There we re no immediate complications. Preprocedure pain level: 6/10. Postprocedure pain level: 2/10. There is a benign sclerotic lesion in the left proximal femoral metaphysis which is unchanged from st udies dating back to 2009. IMPRESSION: THERAPEUTIC INJECTION OF THE LEFT HIP JOINT ABOVE. COMMENT: Patient medication list reviewed: Yes- Quality ID# 130:Eligible professional attests to doc umenting in the medical record they obtained, updated, or reviewed the patient's current medications. . Quality ID 145: Final reports for procedures using fluoroscopy that document radiation exposure bharti abdias, or exposure time and number of fluorographic images (if radiation exposure indices are not avail able) TECHNICAL DOCUMENTATION: JOB ID: [id number] [email or web address]- All Rights Reserved Reading location - IP/workstation name: [facility]
== END ==
LOC: RAD 12:42
PROVIDERS: ATTEND Family Medicine
PROC: 3E0U33Z Introduction of Anti-inflammatory into Joints, Percutaneous Approach (ICD-10-PCS; principal; 2017-09-05)
DX: M16.12 Unilateral primary osteoarthritis, left hip (principal)
CPT/HCPCS: 20610; 77002; J3490; J1020

== ENCOUNTER → 2017-09-18 | Outpatient (CLI) | payer MEDICARE, MEDICAID ==
--- NOTE | 2017-09-18 11:12 | RADIOLOGY REPORT (SQ) ---
EXAM DESCRIPTION: CHEST 2 VIEWS COMPLETED DATE/TIME: 09/18/2017 10:33 am REASON FOR STUDY: COUGH COMPARISON: 04/02/2017 EXAM PARAMETERS: NUMBER OF VIEWS: two views TECHNIQUE: Digital Frontal and Lateral radiographic views of the chest acquired. RADIATION DOSE: NA LIMITATIONS: none FINDINGS: LUNGS AND PLEURA: No opacities, masses or pneumothorax. No pleural effusion. MEDIASTINUM AND HILAR STRUCTURES: No masses or contour abnormalities. HEART AND VASCULAR STRUCTURES: Heart normal size. No evidence for failure. BONES: No acute findings. HARDWARE: Pacemaker defibrillator unchanged. OTHER: No other significant finding. IMPRESSION: NO ACUTE RADIOGRAPHIC FINDING IN THE CHEST. TECHNICAL DOCUMENTATION: JOB ID: [id number] [employer]- All Rights Reserved Reading location - IP/workstation name: [email or web address]
== END ==
LOC: RAD 10:18
PROVIDERS: ATTEND Physician Assistant
DX: R05 Cough (principal)
CPT/HCPCS: 71046

== ENCOUNTER 2017-10-30 06:22 | Day surgery (SDC) | payer MEDICARE, MEDICAID ==
[~2017-10-30 06:22] MED LIST changes: -BUPIVACAINE HCL 0.5 % INJ/PF 30 ML SDV ONE; +KETOROLAC TROMETHAMINE 0.45% 4 DROP/0.4 ML DROPERETTE OS PRN; -METHYLPREDNISOLONE ACETATE INJ 40 MG/1 ML ML ONE
[2017-10-30] MEDS: CYCLOPENTOLATE 0.2%/PHENYLEPHRINE 1% OPH SOLN 2 ML OS PRN ×3 (06:48→07:08)
[2017-10-30] MEDS: BESIFLOXACIN HCL 0.6% OPH SUSP 5 ML BOTTLE OS PRN ×5 (06:48→08:36)
[2017-10-30] MEDS: TROPICAMIDE 1% OPH SOLN 3 ML OS PRN ×2 (06:48→06:58)
[2017-10-30] MEDS: TETRACAINE HCL 0.5% OPH SOLN 2 ML OS PRN ×4 (06:49→08:12)
[2017-10-30] MEDS ORDERED: MIDAZOLAM 2 MG/2 ML INJ ONE (07:01)
[2017-10-30] MEDS ORDERED: FENTANYL CITRATE INJ/PF 100 MCG/2 ML AMPUL ONE (07:02)
[2017-10-30] MEDS ORDERED: LIDOCAINE 2% INJ-PF (20 MG/ML) 10 ML AMPUL ONE (07:32)
[2017-10-30] MEDS: LIDOCAINE 1% INJ-PF (10 MG/ML) 30 ML SDV ONE ×2 (08:23)
[2017-10-30] MEDS: CHONDR SU A NA/HYALUR INTRAOC KIT (SURGICARE) ONE ×2 (08:23)
[2017-10-30] MEDS: EPINEPHRINE INJ/PF 1 MG/1 ML AMPULE ONE ×2 (08:23)
--- NOTE | 2017-10-30 14:55 | [facility] OPERATIVE REPORT E ---
[facility] Operative Report NAME: INA ELMORE AGE: 67Y DATE OF SURGERY: 10/30/2017 ROOM: PREOPERATIVE DIAGNOSIS: CATARACT, LEFT EYE. POSTOPERATIVE DIAGNOSIS: CATARACT, LEFT EYE. OPERATION: Cataract extraction with insertion of an IOL of the left eye. SURGEON: DRAKE MARTINEZ M.D. ANESTHESIA: Topical. PROCEDURE: After obtaining appropriate consent, the patient's left eye was prepped and draped in sterile fashion as well as the surgeon in a sterile manner and cataract surgery was started. First a paracentesis blade was used to make a side-port incision. Viscoelastic was used to inflate the anterior chamber. Next a 2.4 mm incision was made with a 2.4 mm blade, clear corneal temporally. A continuous capsulorrhexis was made using a cystotome and Utrata forceps. Following this hydrodissection was carried out to make the lens fully loose and mobile and it was rotated 90 degrees. Following this, a nxtfau-pql-rhruwiq technique was used to phacoemulsify the lens with a CDE of 3.34. The remaining cortex was removed with irrigation/aspiration. Provisc was instilled into the capsular bag to inflate the bag. A SN60WF, 24.0 diopter lens was placed. The remaining viscoelastic material was removed with irrigation/aspiration. Following this, the incision was found to be watertight. Besivance was instilled into the eye and a protective shield was placed over the eye. The patient returned to the postoperative recovery in stable condition. DICTATING PHYSICIAN: DRAKE MARTINEZ M.D. [id number] PHY#: [id number] ID: [id number] JOB#: [id number] ACCT: [id number] cc:DRAKE MARTINEZ M.D. >
--- NOTE | 2017-10-30 14:57 | [facility] DISCHARGE SUMMARY E ---
[facility] Discharge Summary NAME: INA ELMORE AGE: 67Y ADMITTED: 10/30/2017 DISCHARGED: 10/30/2017 DIAGNOSIS: Cataract, left eye. SUMMARY: This is a 67-year-old female who underwent cataract extraction of the left eye. She underwent surgery because she was having difficulty seeing small print. DISCHARGE INSTRUCTIONS: She should be on a regular diet, no bending at her waist, and no heavy lifting. She should use her Besivance, Ilevro, and Durezol at 3 p.m. and 8 p.m. and sleep with a rigid shield. I will see her for *------* postoperative today. DICTATING PHYSICIAN: DRAKE MARTINEZ M.D. [id number] PHY#: [id number] ID: [id number] JOB#: [id number] ACCT: [id number] cc:DRAKE MARTINEZ M.D. >
== END 2017-10-30 09:26 | disposition home or self-care (01) ==
LOC: SC 06:22
PROVIDERS: ATTEND Internal Medicine
DX: H25.813 Combined forms of age-related cataract, bilateral (principal); J44.9 Chronic obstructive pulmonary disease, unspecified; E11.9 Type 2 diabetes mellitus without complications; I50.9 Heart failure, unspecified; Z79.51 Long term (current) use of inhaled steroids; Z86.73 Personal history of transient ischemic attack (TIA), and cerebral infarction without residual deficits; Z88.8 Allergy status to other drugs, medicaments and biological substances; Z79.899 Other long term (current) drug therapy; Z87.891 Personal history of nicotine dependence; Z95.810 Presence of automatic (implantable) cardiac defibrillator
CPT/HCPCS: 66984; 82962; V2632; J2250; J3490 ×3; A9270; J0171; 142; J3010

== ENCOUNTER 2017-11-29 10:07 | Day surgery (SDC) | payer MEDICARE, MEDICAID ==
[~2017-11-29 10:07] MED LIST changes: +KETOROLAC TROMETHAMINE 0.45% 4 DROP/0.4 ML DROPERETTE OD PRN; -KETOROLAC TROMETHAMINE 0.45% 4 DROP/0.4 ML DROPERETTE OS PRN
[2017-11-29] MEDS ORDERED: CHONDR SU A NA/HYALUR INTRAOC KIT (SURGICARE) ONE (10:19)
[2017-11-29] MEDS ORDERED: EPINEPHRINE INJ/PF 1 MG/1 ML AMPULE ONE (10:19)
[2017-11-29] MEDS ORDERED: LIDOCAINE 1% INJ-PF (10 MG/ML) 30 ML SDV ONE (10:19)
[2017-11-29] MEDS: CYCLOPENTOLATE 0.2%/PHENYLEPHRINE 1% OPH SOLN 2 ML OD PRN ×3 (11:23→11:43)
[2017-11-29] MEDS: TROPICAMIDE 1% OPH SOLN 3 ML OD PRN ×3 (11:23→11:43)
[2017-11-29] MEDS: BESIFLOXACIN HCL 0.6% OPH SUSP 5 ML BOTTLE OD PRN ×4 (11:23→12:24)
[2017-11-29] MEDS: TETRACAINE HCL 0.5% OPH SOLN 2 ML OD PRN ×3 (11:24→12:08)
[2017-11-29] MEDS ORDERED: MIDAZOLAM 2 MG/2 ML INJ ONE (11:49)
[2017-11-29] MEDS ORDERED: FENTANYL CITRATE INJ/PF 100 MCG/2 ML AMPUL ONE (11:50)
--- NOTE | 2017-11-29 18:45 | [facility] OPERATIVE REPORT E ---
[facility] Operative Report NAME: INA ELMORE AGE: 67Y DATE OF SURGERY: 11/29/2017 ROOM: PREOPERATIVE DIAGNOSIS: CATARACT, RIGHT EYE. POSTOPERATIVE DIAGNOSIS: CATARACT, RIGHT EYE. OPERATION: Cataract extraction with insertion of an IOL of the right eye. SURGEON: DRAKE MARTINEZ M.D. ANESTHESIA: Topical. PROCEDURE: After obtaining appropriate consent, the patient's right eye was prepped and draped in sterile fashion as well as the surgeon in a sterile manner and cataract surgery was started. First a paracentesis blade was used to make a side-port incision. Viscoelastic was used to inflate the anterior chamber. Next a 2.4 mm incision was made with a 2.4 mm blade, clear corneal temporally. A continuous capsulorrhexis was made using a cystotome and Utrata forceps. Following this hydrodissection was carried out to make the lens fully loose and mobile and it was rotated 90 degrees. Following this, a ldvyes-ghf-jxpnaqw technique was used to phacoemulsify the lens with a CDE of 3.87. The remaining cortex was removed with irrigation/aspiration. Provisc was instilled into the capsular bag to inflate the bag. A SN60WF, 23.5 diopter lens was placed. The remaining viscoelastic material was removed with irrigation/aspiration. Following this, the incision was found to be watertight. Besivance was instilled into the eye and a protective shield was placed over the eye. The patient returned to the postoperative recovery in stable condition. DICTATING PHYSICIAN: DRAKE MARTINEZ M.D. [id number] PHY#: [id number] ID: [id number] JOB#: [id number] ACCT: [id number] cc:DRAKE MARTINEZ M.D. >
--- NOTE | 2017-11-29 18:50 | [facility] DISCHARGE SUMMARY E ---
[facility] Discharge Summary NAME: INA ELMORE AGE: 67Y ADMITTED: 11/29/2017 DISCHARGED: 11/29/2017 HOSPITAL COURSE: This is a 67-year-old female who underwent cataract extraction of the right eye. DIAGNOSIS: CATARACT, RIGHT EYE. She underwent surgery because she was having trouble seeing words on the television and small road signs. DISCHARGE INSTRUCTIONS: She should be on a regular diet. No bending at her waist, no heavy lifting. She should use her Besivance, Ilevro, and Durezol at 3 p.m. and 8 p.m. and sleep with a rigid shield. I will see her for her 1 day postoperative tomorrow. DICTATING PHYSICIAN: DRAKE MARTINEZ M.D. [id number] PHY#: [id number] ID: [id number] JOB#: [id number] ACCT: [id number] cc:DARKE MARTINEZ M.D. >
== END 2017-11-29 13:20 | disposition home or self-care (01) ==
LOC: SC 10:07
PROVIDERS: ATTEND Internal Medicine
DX: H25.811 Combined forms of age-related cataract, right eye (principal); Z96.1 Presence of intraocular lens; J44.9 Chronic obstructive pulmonary disease, unspecified; I10 Essential (primary) hypertension; M19.90 Unspecified osteoarthritis, unspecified site; I49.9 Cardiac arrhythmia, unspecified; Z79.51 Long term (current) use of inhaled steroids; Z79.899 Other long term (current) drug therapy; Z86.73 Personal history of transient ischemic attack (TIA), and cerebral infarction without residual deficits; Z88.8 Allergy status to other drugs, medicaments and biological substances; Z95.810 Presence of automatic (implantable) cardiac defibrillator
CPT/HCPCS: 66984; V2632; J2250; J3490 ×2; A9270; J0171; 142; J3010

== ENCOUNTER → 2018-07-31 | Outpatient (CLI) | payer MEDICARE, MEDICAID ==
--- NOTE | 2018-07-31 12:55 | RADIOLOGY REPORT (SQ) ---
EXAM DESCRIPTION: CT HEAD WITHOUT COMPLETED DATE/TIME: 07/31/2018 10:12 am REASON FOR STUDY: R42 DIZZINESS AND GIDDINESS R42 DIZZINESS AND GIDDINESS Z12.31 ENCNTR SCREEN LANDY MOGRAM FOR MALIGNANT NEOPLASM OF GABBY COMPARISON: None. TECHNIQUE: Axial images acquired through the brain without intravenous contrast. Images reviewed wi th bone, brain and subdural windows. Additional sagittal and coronal reconstructions were generated. Images stored on PACS. All CT scanners at this facility use dose modulation, iterative reconstruction, and/or weight based d osing when appropriate to reduce radiation dose to as low as reasonably achievable (ALARA). [facility]: Dose Right [facility]: CareDose [facility]: Dose Right [facility]: Teradose 4D [facility]: [employer] RADIATION DOSE: CT Rad equipment meets quality standard of care and radiation dose reduction techniq ues were employed. CTDIvol: 48.6 mGy. DLP: 856 mGy-cm. mGy. LIMITATIONS: None. FINDINGS: VENTRICLES: Normal size and contour. CEREBRUM: No masses. No hemorrhage. No midline shift. No evidence for acute infarction. Normal gra y/white matter differentiation. No areas of low density in the white matter. CEREBELLUM: No masses. No hemorrhage. No alteration of density. No evidence for acute infarction. EXTRAAXIAL SPACES: No fluid collections. No masses. ORBITS AND GLOBE: No intra- or extraconal masses. Normal contour of globe without masses. CALVARIUM: No fracture. PARANASAL SINUSES: No fluid or mucosal thickening. SOFT TISSUES: No mass or hematoma. OTHER: No other significant finding. IMPRESSION: NORMAL BRAIN CT WITHOUT CONTRAST. EVIDENCE OF ACUTE STROKE: NO. COMMENT: Quality ID # 436: Final reports with documentation of one or more dose reduction techniques (e.g., Automated exposure control, adjustment of the mA and/or kV according to patient size, use of iterative reconstruction technique) TECHNICAL DOCUMENTATION: JOB ID: [id number] [employer]- All Rights Reserved Reading location - IP/workstation name: [email or web address]
--- NOTE | 2018-07-31 13:02 | RADIOLOGY REPORT (SQ) ---
EXAM DESCRIPTION: CAROTID DOPPLER COMPLETED DATE/TIME: 07/31/2018 11:36 am REASON FOR STUDY: DIZZINESS R42 DIZZINESS AND GIDDINESS Z12.31 ENCNTR SCREEN MAMMOGRAM FOR MALIGNA NT NEOPLASM OF GABBY COMPARISON: 07/31/2018 TECHNIQUE: Grayscale ultrasound, Doppler velocity and spectra, and color Doppler images acquired of the extra-cranial carotid and vertebral arteries. Images stored on PACS. LIMITATIONS: None. FINDINGS: RIGHT CAROTID CCA Velocities: Normal waveforms and velocities without evidence of high-grade stenosis. ICA Velocities Peak systolic 50 cm/s. End diastolic 22 cm/s. Proximal ICA/CCA peak systolic ratio 1.32. Spectra normal. No significant plaque. LEFT CAROTID CCA Velocities: Normal waveforms and velocities without evidence of high-grade stenosis. ICA Velocities Peak systolic 53 cm/s. End diastolic 28 cm/s. Proximal ICA/CCA peak systolic ratio 1.36. Spectra normal. No significant plaque. VERTEBRAL ARTERIES: Antegrade flow. Normal waveforms. SUBCLAVIAN ARTERIES: Not imaged. OTHER: No other significant finding. IMPRESSION: NO HEMODYNAMICALLY SIGNIFICANT STENOSIS. COMMENT: Quality ID #195: Velocity criteria are extrapolated from the diameter data as defined by t he Society of Radiologists in Ultrasound Consensus Conference. Radiology 2003: 229; 340-346. TECHNICAL DOCUMENTATION: JOB ID: [id number] [employer]- All Rights Reserved Reading location - IP/workstation name: [email or web address]
== END ==
LOC: RAD 09:27
PROVIDERS: ATTEND Physician Assistant
DX: R42 Dizziness and giddiness (principal)
CPT/HCPCS: 70450; 93880

== ENCOUNTER → 2018-08-02 | Outpatient (CLI) | payer MEDICARE, MEDICAID ==
--- NOTE | 2018-08-02 11:33 | WOMENS IMAGING REPORT ---
EXAM DESCRIPTION: 3D SCREENING MAMMO BILAT COMPLETED DATE/TIME: 08/02/2018 11:20 am REASON FOR STUDY: Z12.31 ENCOUNTER FOR SCREENING MAMMOGRAM FOR MALIGNANT NEOPLASM OF BREAST Z12.31 ENCNTR SCREEN MAMMOGRAM FOR MALIGNANT NEOPLASM OF GABBY COMPARISON: Multiple since 2008 TECHNIQUE: Standard craniocaudal and mediolateral oblique views of each breast recorded using digita l acquisition and breast tomosynthesis. LIMITATIONS: None. FINDINGS: No masses, calcifications or architectural distortion. No areas of suspicion. Read with the assistance of CAD. .[facility] - R2 Cenova Version 1.3 .[facility] Imaging - R2 Cenova Version 2.1 .[facility] Imaging - R2 Cenova Version 2.4 .[facility] [place] - R2 Cenova Version 2.4 .[facility] - R2 Visual Presentation Manager Version 9.2 IMPRESSION: NORMAL MAMMOGRAM. BIRADS 1. BREAST DENSITY: a. The breasts are almost entirely fatty. BIRAD: 1 NEGATIVE RECOMMENDATION: ROUTINE SCREENING COMMENT: The patient has been notified of the results by letter per SA requirements. Additional no tification policies are in place for contacting patient with suspicious or incomplete findings. Quality ID #[id number]: The [employer] recommends an annual screening mammogram for women aged 40 years or over. This facility utilizes a reminder system to ensure that all patients receive reminder letters, and/or direct phone calls for appointments. This includes reminders for routine scr eening mammograms, diagnostic mammograms, or other Breast Imaging Interventions when appropriate. Th is patient will be placed in the appropriate reminder system. The [employer] (ACR) has developed recommendations for screening MRI of the breast s in certain patient populations, to be used in conjunction with mammography. Breast MRI surveillanc e may be appropriate for women with more than 20% lifetime risk of developing breast cancer as deter mined by genetic testing, significant family history of the disease, or history of mantle radiation f or Hodgkins Disease. ACR Practice Guidelines 2008. DBT Technology DBT is a type of tomographic mammography. With conventional mammography, overlapping breast tissue ma y make lesions difficult to detect, even with good compression. DBT uses an x-ray tube that rotates a round the breast, taking images at different angles. These images are then combined to create thin sl ices of the breast that the radiologist can view as a 3D reconstruction. The [employer] unit can perform full-field digital mammograms (2D imaging); or DBT (3D imaging); or both, in a combination mode that quickly performs both the mammogram and the tomosynthesis scan while the breast is still compressed. PQRS 6045F: Fluoroscopic imaging is not utilized for breast tomosynthesis. TECHNICAL DOCUMENTATION: FINDING NUMBER: (1) ASSESSMENT: (1) JOB ID: [id number] [employer]- All Rights Reserved Reading location - IP/workstation name: [email or web address]
== END ==
LOC: WI 10:20
PROVIDERS: ATTEND Family Medicine
DX: Z12.31 Encounter for screening mammogram for malignant neoplasm of breast (principal)
CPT/HCPCS: 77063; 77067

== ENCOUNTER 2019-01-16 13:29 | Emergency (ER) | payer MEDICARE, MEDICAID ==
--- NOTE | 2019-01-16 14:43 | ER Document Report ---
ED Medical Screen (RME) - General Chief Complaint: Cough Stated Complaint: COUGHING UP BLOOD Time Seen by Provider: 01/16/19 14:36 Primary Care Provider: LESLY HEDRICK MD [Primary Care Provider] - Follow up as needed Mode of Arrival: Ambulatory Information source: Patient Notes: Patient is a 68-year-old female with complaints of coughing up blood. Patient reports she had a hip replacement on Sunday at [facility]. She states that the hemoptysis started immediately after surgery. She reports that they told her this was due to being intubated. She reports that the hemoptysis has continued and she is now coughing up blood clots. Patient denies any chest pain or shortness of breath. Exam: Lung sounds clear and equal bilaterally. No acute distress noted. Spoke with attending physician who recommends going ahead and ordering the CTA. I have greeted and performed a rapid initial assessment of this patient. A comprehensive ED assessment and evaluation of the patient, analysis of test results and completion of the medical decision making process will be conducted by additional ED providers. I have specifically instructed the patient or family members with the patient to immediately return to any nursing staff should anything change in the patient's condition or with their chief complaint. This medical record was dictated with voice recognizing software. There may be grammatical, syntax errors that are unintended. TRAVEL OUTSIDE OF THE [place] IN LAST 30 DAYS: No - Related Data Allergies/Adverse Reactions: atorvastatin calcium [From Lipitor] Allergy (Severe, Verified 11/29/17 11:21) paralysis lisinopril Allergy (Severe, Verified 11/29/17 11:21) LIPS/TONGUE SWELLING adalimumab [From Humira] Adverse Reaction (Intermediate, Verified 11/29/17 11:21) BLISTERING OF SKIN Past Medical History - Past Medical History Cardiac Medical History: Reports: Hx Hypertension - MEDICATED Denies: Hx Coronary Artery Disease, Hx Heart Attack Pulmonary Medical History: Reports: Hx Bronchitis, Hx COPD Denies: Hx Asthma, Hx Pneumonia Neurological Medical History: Denies: Hx Cerebrovascular Accident, Hx Seizures Renal/ Medical History: Denies: Hx Peritoneal Dialysis GI Medical History: Reports: Hx Gastroesophageal Reflux Disease. Denies: Hx Hepatitis, Hx Hiatal Hernia, Hx Ulcer Musculoskeltal Medical History: Reports Hx Arthritis Infectious Medical History: Denies: Hx Hepatitis Past Surgical History: Denies: Hx Hysterectomy, Hx Mastectomy, Hx Open Heart Surgery, Hx Pacemaker - Immunizations Hx Diphtheria, Pertussis, Tetanus Vaccination: No History of Influenza Vaccine for 03/2017 - 08/2017 Season: No Physical Exam - Vital signs Vitals: Temp Pulse Resp BP Pulse Ox 98.2 F 77 18 102/67 94 01/16/19 13:35 01/16/19 13:35 01/16/19 13:35 01/16/19 13:35 01/16/19 13:35 Course - Vital Signs Vital signs: Temp Pulse Resp BP Pulse Ox 98.2 F 77 18 102/67 94 01/16/19 13:35 01/16/19 13:35 01/16/19 13:35 01/16/19 13:35 01/16/19 13:35 Doctor's Discharge - Discharge Referrals: LESLY HEDRICK MD [Primary Care Provider] - Follow up as needed
[2019-01-16 15:12] LABS: ABSOLUTE BASOPHILS # (AUTO) 0.2 10^3/uL (0.0-0.2); ABSOLUTE EOSINOPHILS # (AUTO) 0.3 10^3/uL (0.0-0.6); ABSOLUTE LYMPHOCYTES (AUTO) 1.8 10^3/uL (0.5-4.7); ABSOLUTE NEUT (AUTO) 8.3 10^3/uL (1.7-8.2); BASOPHILS % (AUTO) 1.2 % (0-2); EOSINOPHILS % (AUTO) 2.3 % (0-6); HEMATOCRIT 35.1 % (36.0-47.0); HEMOGLOBIN 11.5 g/dL (12.0-15.5); LYMPHOCYTES % (AUTO) 14.7 % (13-45); MEAN CORPUSCULAR HEMOGLOBIN 30.2 pg (27.0-33.4); MEAN CORPUSCULAR HGB CONC 32.8 g/dL (32.0-36.0); MEAN CORPUSCULAR VOLUME 92 fl (80-97); MONOCYTES % (AUTO) 15.6 % (3-13); PLATELET COUNT 195 10^3/uL (150-450); RED BLOOD COUNT 3.82 10^6/uL (3.72-5.28); RED CELL DISTRIBUTION WIDTH 15.7 % (11.5-14.0); SEGMENTED NEUTROPHILS % (AUTO) 66.2 % (42-78); TOTAL CELLS COUNTED % (AUTO) 100 %; WHITE BLOOD COUNT 12.5 10^3/uL (4.0-10.5)
[2019-01-16 15:16] LABS: INTERNATIONAL RATION (INR) 1.03; PARTIAL THROMBOPLASTIN TIME 28.7 SEC (23.5-35.8); PROTHROMBIN TIME 13.5 SEC (11.4-15.4)
[2019-01-16 15:40] LABS: ALBUMIN 3.4 g/dL (3.5-5.0); ALKALINE PHOSPHATASE 86 U/L (38-126); ASPARTATE AMINO TRANSFERASE 62 U/L (14-36); BILIRUBIN,DIRECT 0.3 mg/dL (0.0-0.4); BILIRUBIN,TOTAL 0.4 mg/dL (0.2-1.3); BLOOD UREA NITROGEN 25 mg/dL (7-20); CALCIUM 9.8 mg/dL (8.4-10.2); GLUCOSE 101 mg/dL (75-110); POTASSIUM 4.5 mmol/L (3.6-5.0); TOTAL PROTEIN 6.7 g/dL (6.3-8.2)
[2019-01-16 15:45] LABS: CARBON DIOXIDE 29 mmol/L (22-30); CHLORIDE 107 mmol/L (98-107)
[2019-01-16 15:46] LABS: ANION GAP 4 (5-19)
--- NOTE | 2019-01-16 16:34 | RADIOLOGY REPORT (SQ) ---
EXAM DESCRIPTION: CTA CHEST COMPLETED DATE/TIME: 01/16/2019 4:14 pm REASON FOR STUDY: recent surgery, hemoptysis COMPARISON: 03/26/2017. TECHNIQUE: CT scan of the chest performed using helical scanning technique with dynamic intravenous contrast injection. Images reviewed with lung, soft tissue and bone windows. Reconstructed coronal and sagittal MPR images reviewed. Additional 3 dimensional post-processing performed to develop Maximal Intensity Projection images (PR P). All images stored on PACS. All CT scanners at this facility use dose modulation, iterative reconstruction, and/or weight based d osing when appropriate to reduce radiation dose to as low as reasonably achievable (ALARA). [facility]: Dose Right [facility]: CareDose [facility]: Dose Right [facility]: Teradose 4D [facility]: [email or web address] CONTRAST TYPE AND DOSE: contrast/concentration: Isovue 350.00 mg/ml; Total Contrast Delivered: 65.0 ml; Total Saline Delivered: 80.0 ml Contrast bolus adequate for pulmonary arteries and aorta. RENAL FUNCTION: BUN 25 creatinine 1.25. RADIATION DOSE: CT Rad equipment meets quality standard of care and radiation dose reduction techniq ues were employed. CTDIvol: 19.6 - 33.1 mGy. DLP: 695 mGy-cm. . LIMITATIONS: None. FINDINGS: LUNGS AND PLEURA: No masses, infiltrates, or pneumothorax. No pleural effusions or pleura l calcifications. AORTA AND GREAT VESSELS: No aneurysm. Contrast bolus not optimized for the aorta. HEART: No pericardial effusion. No significant coronary artery calcifications. PULMONARY ARTERIES: No emboli visualized in the main pulmonary arteries or the segmental branches. HILAR AND MEDIASTINAL STRUCTURES: No identified masses or abnormal nodes. HARDWARE: None in the chest. UPPER ABDOMEN: No significant findings. Limited exam. THYROID AND OTHER SOFT TISSUES: Diffusely enlarged and heterogenous thyroid. No adenopathy. BONES: No acute or significant finding. 3D MIPS: Confirm above findings. OTHER: No other significant finding. IMPRESSION: NORMAL CTA OF THE CHEST. NO PULMONARY EMBOLI. COMMENT: Quality ID # [id number]: Final reports with documentation of one or more dose reduction techniques (e.g., Automated exposure control, adjustment of the mA and/or kV according to patient size, use of iterative reconstruction technique) TECHNICAL DOCUMENTATION: JOB ID: [id number] [employer]- All Rights Reserved Reading location - IP/workstation name: [email or web address]
--- NOTE | 2019-01-16 19:51 | ER Document Report ---
ED General - General Chief Complaint: Cough Stated Complaint: COUGHING UP BLOOD Time Seen by Provider: 01/16/19 14:36 Primary Care Provider: LESLY HERDICK MD [Primary Care Provider] - Follow up tomorrow Mode of Arrival: Ambulatory TRAVEL OUTSIDE OF THE [place] IN LAST 30 DAYS: No - HPI Notes: 68-year-old female sent by her doctor to be evaluated for hemoptysis. Patient had a hip replacement on the left side on Sunday, was intubated for the procedure. Since then she has been coughing up intermittently blood and sometimes some small clots. She denies any chest pain, no dyspnea. No use of anticoagulants. No personal or family history of venous thromboembolism. No dyspnea. No fever. Moderate intensity, gradual onset, nonradiating, no worse w ith exertion. No other modifying factors, no other associated symptoms, no other provocative or palliative factors. - Related Data Allergies/Adverse Reactions: atorvastatin calcium [From Lipitor] Allergy (Severe, Verified 11/29/17 11:21) paralysis lisinopril Allergy (Severe, Verified 11/29/17 11:21) LIPS/TONGUE SWELLING adalimumab [From Humira] Adverse Reaction (Intermediate, Verified 11/29/17 11:21) BLISTERING OF SKIN Past Medical History - General Information source: Patient - Social History Smoking Status: Former Smoker Family History: Reviewed & Not Pertinent Patient has suicidal ideation: No Patient has homicidal ideation: No - Past Medical History Cardiac Medical History: Reports: Hx Hypertension - MEDICATED Denies: Hx Coronary Artery Disease, Hx Heart Attack Pulmonary Medical History: Reports: Hx Bronchitis, Hx COPD Denies: Hx Asthma, Hx Pneumonia Neurological Medical History: Denies: Hx Cerebrovascular Accident, Hx Seizures Renal/ Medical History: Denies: Hx Peritoneal Dialysis GI Medical History: Reports: Hx Gastroesophageal Reflux Disease. Denies: Hx Hepatitis, Hx Hiatal Hernia, Hx Ulcer Musculoskeletal Medical History: Reports Hx Arthritis Infectious Medical History: Denies: Hx Hepatitis Past Surgical History: Denies: Hx Hysterectomy, Hx Mastectomy, Hx Open Heart Surgery, Hx Pacemaker - Immunizations Hx Diphtheria, Pertussis, Tetanus Vaccination: No Review of Systems - Review of Systems Notes: Review of systems as in the history of present illness, otherwise negative x 10 systems. Physical Exam - Vital signs Vitals: Temp Pulse Resp BP Pulse Ox 98.2 F 77 18 102/67 94 01/16/19 13:35 01/16/19 13:35 01/16/19 13:35 01/16/19 13:35 01/16/19 13:35 - Notes Notes: General: Well developed . HEENT: Normocephalic, atraumatic. Pupils equal round reactive to light. No JVD. Chest: No trauma. Respiratory: Good air exchange, normal excursion. Cardiac: Regular rhythm. No murmurs or gallops. Abdomen: Soft, benign. Nondistended. Nontender. Back: No asymmetry or gross abnormality. Motor: Grossly normal power and tone. Neurologic: Alert, nonfocal. Cranial nerves II-12 are intact. Sensation intact. Vascular: Well perfused. Normal peripheral pulses. Skin: No petechiae or purpura. Extremities: Left hip incision is well-healing, no edema erythema or induration Course - Re-evaluation Re-evalutation: 01/16/19 20:29 Well-appearing 68-year-old female presents with hemoptysis. She has a normal exam, suspicion for venous thromboembolism or pulmonary parenchymal emergency is low. Suspect this is due to some type of mild trauma related to her intubation and she is clearing clots. She describes more of a dark red type blood coming up. Patient seen by physician in triage prior to my evaluation. When I evaluate patient all studies are available. CBC unremarkable, chemistries unremarkable. CTA is obtained, CTA shows no acute abnormality. I have cautioned the patient and her family that early malignancy can be missed on CT scan they understand the critical need for outpatient follow-up. Otherwise no evidence of venous thromboembolism. Discharge home follow-up with primary care doctor, return if worsening. Of note, she is on an outpatient antibiotic that would cover bacterial bronchitis and her commute acquired pneumonia. - Vital Signs Vital signs: Temp Pulse Resp BP Pulse Ox 97.3 F 74 16 98/63 L 100 01/16/19 20:03 01/16/19 20:03 01/16/19 20:03 01/16/19 20:03 01/16/19 20:03 - Laboratory Result Diagrams: 01/16/19 15:00 01/16/19 15:00 Laboratory results interpreted by me: 01/16/19 01/16/19 15:00 15:00 WBC 12.5 H Hgb 11.5 L Hct 35.1 L RDW 15.7 H Monocytes % 15.6 H Absolute Neutrophils 8.3 H Absolute Monocytes 2.0 H Anion Gap 4 L BUN 25 H Est GFR ( Amer) 52 L Est GFR (Non-Af Amer) 43 L AST 62 H Albumin 3.4 L Discharge - Discharge Clinical Impression: Hemoptysis Condition: Stable Disposition: HOME, SELF-CARE Instructions: Hemoptysis ([facility]) Referrals: LESLY HEDRICK MD [Primary Care Provider] - Follow up tomorrow
[2019-01-16 20:09] VITALS: BP 98/63
== END 2019-01-16 20:15 | disposition home or self-care (01) ==
LOC: ER 13:29
DX: R04.2 Hemoptysis (principal); J18.9 Pneumonia, unspecified organism; J44.0 Chronic obstructive pulmonary disease with (acute) lower respiratory infection; I10 Essential (primary) hypertension; Z96.649 Presence of unspecified artificial hip joint; Z88.8 Allergy status to other drugs, medicaments and biological substances; Z87.891 Personal history of nicotine dependence
CPT/HCPCS: 36415; 71275; 80053; 85025; 85610; 85730; 99284

== ENCOUNTER → 2019-07-07 | Outpatient (CLI) | payer MEDICARE, MEDICAID ==
[2019-07-07 12:58] LABS: FREE T3 2.73 pg/mL (2.77-5.27); FREE T4 (FREE THYROXINE) 0.95 ng/dL (0.78-2.19)
[2019-07-07 13:12] LABS: THYROID STIMULATING HORMONE 1.27 uIU/mL (0.47-4.68)
== END ==
LOC: OD 10:53
PROVIDERS: ATTEND Surgery
DX: E04.9 Nontoxic goiter, unspecified (principal)
CPT/HCPCS: 36415; 84439; 84443; 84481

== ENCOUNTER → 2019-10-23 | Outpatient (CLI) | payer MEDICARE, MEDICAID ==
--- NOTE | 2019-10-23 13:33 | WOMENS IMAGING REPORT ---
EXAM DESCRIPTION: 3D SCREENING MAMMO BILAT IMAGES COMPLETED DATE/TIME: 10/23/2019 10:09 am REASON FOR STUDY: Z12.31 ENCOUNTER FOR SCREENING MAMMOGRAM FOR MALIGNANT NEOPLASM OF BREAST Z12.31 ENCNTR SCREEN MAMMOGRAM FOR MALIGNANT NEOPLASM OF GABBY COMPARISON: 08/02/2018 and 01/08/2017. EXAM PARAMETERS: Standard craniocaudal and mediolateral oblique views of each breast recorded using digital acquisition and breast tomosynthesis. Read with the assistance of CAD. .[facility] - R2 Terminal Make Up Operator Version 9.2 LIMITATIONS: None. FINDINGS: Findings present which are benign by mammographic criteria. No suspicious masses, calcific ations or architectural distortion. Pertinent benign findings: Benign calcifications. Benign mammographic findings may include one or more of the following: Smooth masses, popcorn/rim/coa rse calcifications, asymmetries, post-procedure changes, and lesions with long-standing stability. IMPRESSION: BENIGN MAMMOGRAPHIC FINDINGS. BIRADS 2 BREAST DENSITY: a. The breasts are almost entirely fatty. BIRAD: ASSESSMENT: 2 BENIGN FINDING(S) RECOMMENDATION: ROUTINE SCREENING COMMENT: The patient has been notified of the results by letter per SA requirements. Additional no tification policies are in place for contacting patient with suspicious or incomplete findings. Quality ID #[id number]: The [employer] recommends an annual screening mammogram for women aged 40 years or over. This facility utilizes a reminder system to ensure that all patients receive reminder letters, and/or direct phone calls for appointments. This includes reminders for routine scr eening mammograms, diagnostic mammograms, or other Breast Imaging Interventions when appropriate. Th is patient will be placed in the appropriate reminder system. TECHNICAL DOCUMENTATION: FINDING NUMBER: (1) ASSESSMENT: (1) JOB ID: [id number] [employer]- All Rights Reserved Reading location - IP/workstation name: [email or web address]
== END ==
LOC: WI 09:30
PROVIDERS: ATTEND Physician Assistant
DX: Z12.31 Encounter for screening mammogram for malignant neoplasm of breast (principal)
CPT/HCPCS: 77063; 77067